=== PATIENT | male | born 1940 | race Caucasian/White ===

== ENCOUNTER 2016-10-23 20:30 | Inpatient (IN) | payer MEDICARE, BC ==
--- NOTE | 2016-10-23 20:56 | Emergency Department Record ---
History of Present Illness - General Chief complaint: Weakness Stated complaint: WEAKNESS Time Seen by Provider: 10/23/16 20:50 Source: Patient Mode of Arrival: EMS Limitations: No limitations - History of Present Illness Initial comments: 76 yo male presents to ED with a CC of "I don't know". Patient exhibits rambling conversational on examination about his dog and prescription medications, but cannot tell me when he is here in the ED. Location: Generalized Improves with: None Worsens with: None Associated Symptoms: Denies other symptoms - [place] Coma Scale Eye Response: (4) Open spontaneously Motor Response: (6) Obeys commands Verbal Response: (5) Oriented Alyx Total: 15 - Related Data Home Medications Medication Instructions Recorded Confirmed Last Taken Thiamine HCl [Vitamin B-1] 100 mg PO DAILY 12/17/14 10/23/16 09/14/15 Ciprofloxacin HCl [Cipro] 500 mg PO BID 10/23/16 10/23/16 Unknown Gabapentin [Gabapentin] 300 mg PO TID 10/23/16 10/23/16 Unknown Omeprazole [Prilosec] 20 mg PO DAILY 10/23/16 10/23/16 Unknown Sotalol HCl [Betapace] 80 mg PO BID 10/23/16 10/23/16 Unknown Previous Rx's Medication Instructions Recorded Cyanocobalamin (Vitamin B-12) 1,000 mcg SC DAILY vial 10/22/15 [Vitamin B-12] Folic Acid 1 mg PO DAILY tablet 10/22/15 Calcium Carbonate [Tums] 500 mg PO Q4H PRN #120 tab.chew 03/13/16 Loperamide HCl [Immodium] 2 mg PO Q4H PRN #120 capsule 03/13/16 Allergies Allergy/AdvReac Type Severity Reaction Status Date / Time No Known Drug Allergies Allergy Verified 03/10/16 13:08 Travel Screening - Travel/Exposure Within Last 30 Days Have you traveled within the last 30 days?: No - Travel/Exposure Within Last Year Have you traveled outside the [place] in the last year?: No - Additonal Travel Details Have you been exposed to anyone with a communicable illness?: No Review of Systems ROS unobtainable: Due to mental status Past Medical History - SOCIAL HISTORY Smoking Status: Former smoker Alcohol Use Comment: Pt states sober 200 days Drug Use: None - RESPIRATORY Hx Respiratory Disorders: Yes Hx Pneumonia: Yes - CARDIOVASCULAR Hx Cardio Disorders: Yes Hx CHF: Yes Hx Hypertension: Yes - NEURO Hx Neuro Disorders: No - GI Hx GI Disorders: No Hx Liver Disease: Yes ("I think so") Comment:: "I don't know" - Hx Genitourinary Disorders: No Hx UTI: Yes Comment:: Curiel catheter since previous admission - ENDOCRINE Hx Endocrine Disorders: No Hx Diabetes: No Hx Thyroid Disease: No - MUSCULOSKELETAL Hx Musculoskeletal Disorders: Yes Hx Arthritis: Yes - PSYCH Hx Psych Problems: No - HEMATOLOGY/ONCOLOGY Hx Hematology/Oncology Disorders: No Family Medical History Any Significant Family History?: No Hx Alcohol Use: Father Hx Cancer: Mother *Cancer Comment: pancreatic cancer- Hx Dementia: Mother Hx Stroke: Father Physical Exam - General General Appearance: Alert, Cooperative, Other (patient appears disheveled on examination, soiling himself, and clincially appears intoxicated on examination. ) Limitations: Altered mental status - Head Head exam: Atraumatic, Normocephalic, Normal inspection Head exam detail: negative: Abrasion, Contusion, Oliveira's sign, General tenderness, Hematoma, Laceration - Eye Eye exam: Normal appearance. negative: Conjunctival injection, Periorbital swelling, Periorbital tenderness, Scleral icterus - ENT Ear exam: negative: Auricular hematoma, Auricular trauma Nasal Exam: negative: Active bleeding, Discharge, Dried blood, Foreign body Mouth exam: negative: Drooling, Laceration, Muffled voice, Tongue elevation - Neck Neck exam: Normal inspection. negative: Meningismus, Tenderness - Respiratory Respiratory exam: Wheezes. negative: Respiratory distress, Rhonchi, Stridor - Cardiovascular Cardiovascular Exam: Regular rate, Normal rhythm, Normal heart sounds - GI/Abdominal GI/Abdominal exam: Soft. negative: Rebound, Rigid, Tenderness - Rectal Rectal exam: Deferred - exam: Deferred - Extremities Extremities exam: Normal inspection. negative: Calf tenderness, Pedal edema, Tenderness - Back Back exam: Reports: Normal inspection. Denies: CVA tenderness (R), CVA tenderness (L) - Neurological Neurological exam: Alert - Psychiatric Psychiatric exam: Normal affect, Normal mood - Skin Skin exam: Normal color. negative: Abrasion Type of lesion: negative: abrasion Course Vital Signs 10/23/16 20:33 Temperature 99.3 F Pulse Rate 82 Respiratory 16 Rate Blood Pressure 110/56 Pulse Ox 93 L - Reevaluation(s) Reevaluation #1: 10/23/16 21:57 Labs reviewed, BUN 25, Creatinine 1.8 (baseline 0.7). Platelets 105, c/w chronic alcohol abuse. IVFs ordered to infuse. CXR reviewed: No acute process, COPD. Reevaluation #2: 10/24/16 06:47 Case was discussed with Nova Tam, will accept admission for ARF and generalized weakness. Medical Decision Making - Lab Data Result diagrams: 10/23/16 21:09 10/23/16 21:09 Disposition Disposition: Admit Clinical Impression: Acute renal insufficiency, Generalized muscle weakness Disposition: Still a Patient at [facility] Decision to Admit: Admit from ER Decision to Admit Date: 10/23/16 Decision to Admit Time: 21:59 Condition: (1) Good Time of Disposition: 21:59
[2016-10-23 21:18] LABS: HEMATOCRIT 39.6 % (42.0-52.0); HEMOGLOBIN 12.9 gm/dl (14.0-18.0); MEAN CORPUSCULAR HGB CONC 32.6 g/dl (32-36); MEAN PLATELET VOLUME 8.8 fl (7.4-10.4); PLATELET COUNT 105 K/uL (130-400); RED BLOOD COUNT 4.35 M/uL (4.40-5.70); WHITE BLOOD COUNT W/O DIFF 3.9 K/uL (4.2-12.2)
[2016-10-23 21:22] LABS: MEAN CORPUSCULAR HEMOGLOBIN 29.6 pg (27-33)
[2016-10-23 21:37] LABS: LACTIC ACID 1.4 mmol/L (0.7-2.1)
[2016-10-23 21:52] LABS: BLOOD UREA NITROGEN 25 mg/dL (9-20); CREATININE 1.8 mg/dL (0.66-1.25); EST GLOMERULAR FILTRATION RATE 39 ml/min; GLUCOSE,RANDOM 183 mg/dL (70-110)
[2016-10-23 21:53] LABS: ALB/GLOB RATIO 1.2 (1.1-1.8); ALBUMIN 3.9 gm/dL (3.5-5.0); ALKALINE PHOSPHATASE 86 U/L (38-126); ALT/SGPT 19 U/L (21-72); AST/SGOT 16 U/L (17-59); TOTAL PROTEIN 7.1 gm/dL (6.3-8.2)
[2016-10-23 21:54] LABS: CKMB 0.6 ug/L (0-6); CREATINE PHOSPHOKINASE 80 U/L (55-170); TROPONIN I < 0.012 ng/mL (0.00-0.034)
[2016-10-23] MEDS ORDERED: 0.9 % SODIUM CHLORIDE 1000ML 1,000 ML IV SCH (22:00)
[2016-10-23 22:10] LABS: AMMONIA < 8.7 umol/L (9-30)
[2016-10-23] MEDS: 0.9 % SODIUM CHLORIDE 1000ML 1,000 ML IV PRN (22:48)
[2016-10-24 06:38] LABS: INR 1.09; PROTHROMBIN TIME (PATIENT) 12.3 SECONDS (9.5-12.1)
--- NOTE | 2016-10-24 07:19 | RADIOLOGY REPORT ---
EXAM: CHEST, TWO VIEWS HISTORY: WEAKNESS. COUGH. TECHNIQUE: Upright PA and lateral views of the chest were obtained. Comparison: Two view chest radiographic examination dated 10/18/15. FINDINGS: The heart is not enlarged and the pulmonary vasculature is nondilated. The thoracic aorta remains mildly tortuous. Calcified lymph nodes are noted in the right paratracheal and subcarinal regions of the mediastinum consistent with healed granulomatous disease. The lungs remain hyperinflated consistent with COPD. No new confluent air space opacity is seen nor is there costophrenic angle blunting or pneumothorax. Degenerative changes are again noted scattered within the visualized spine with associated accentuation of the normal thoracic kyphosis. IMPRESSION: 1. NO RADIOGRAPHIC EVIDENCE OF ACUTE CARDIOPULMONARY DISEASE WITHOUT SIGNIFICANT CHANGE SINCE 10/18/15. 2. HYPERINFLATION OF THE LUNGS REDEMONSTRATED CONSISTENT WITH COPD. 3. HEALED GRANULOMATOUS DISEASE. JOB NUMBER: [id number] MTDD
[2016-10-24 07:37] LABS: AMPHETAMINE SCREEN URINE NOT DETECTED; BARBITURATE SCREEN URINE NOT DETECTED; BENZODIAZEPINE SCREEN URINE NOT DETECTED; COCAINE SCREEN URINE NOT DETECTED; METHADONE SCREEN URINE NOT DETECTED; METHAMPHETAMINE SCREEN NOT DETECTED; OPIATE SCREEN URINE NOT DETECTED; OXYCODONE SCREEN URINE NOT DETECTED; PHENCYCLIDINE SCREEN URINE NOT DETECTED; PROPOXYPHENE SCREEN URINE NOT DETECTED; THC SCREEN URINE NOT DETECTED; TRICYCLIC ANTIDEPRESSANT SCRN NOT DETECTED
[2016-10-24] MEDS: CIPROFLOXACIN HCL 500 MG TABLET PO SCH ×2 (09:21→21:42)
[2016-10-24] MEDS: IPRATROPIUM/ALBUTEROL (0.5MG/3MG) NEB INH PRN ×3 (09:38→20:41)
[2016-10-24] MEDS: PANTOPRAZOLE SODIUM 40 MG TABLET PO SCH (09:59)
[2016-10-24] MEDS: GABAPENTIN 300 MG CAPSULE PO SCH ×3 (09:59→21:43)
[2016-10-24] MEDS: CYANOCOBALAMIN (VITAMIN B-12) 100 MCG TABLET PO SCH (09:59)
[2016-10-24] MEDS: FOLIC ACID 1 MG TABLET PO SCH (09:59)
[2016-10-24] MEDS: GUAIFENESIN 1,200 MG TABLET PO SCH ×2 (09:59→21:42)
[2016-10-24] MEDS: THIAMINE MONONITRATE 100 MG TABLET PO SCH (09:59)
[2016-10-24] MEDS: SOTALOL HCL 80 MG TABLET PO SCH ×2 (09:59→21:42)
[2016-10-24] MEDS ORDERED: ALBUTEROL HFA 8 GM INHALER INH SCH (10:00)
[2016-10-24] MEDS ORDERED: POTASSIUM CHLORIDE 20 MEQ TABLET PO SCH (10:00)
[2016-10-24] MEDS ORDERED: METOPROLOL TART 50 MG TABLET PO SCH (10:00)
--- NOTE | 2016-10-24 10:19 | History & Physical ---
History of Present Illness - Date of Service Date of Service for History & Physical: 10/24/16 - History of Present Illness Admitting Diagnosis: ARF. Dehydration. Generalized weakness History of Present Illness: 76 yo male admitted for acute kidney injury, dehydration and weakness. PMHx consists of etoh abuse, CHF, HTN, arthritis, liver disease, and COPD. Patient reports worsening cough, wheezing and weakness over the past week. Aggravated by lying down. Alleviated by breathing treatment here on the floor. Associated symptoms include change in urination frequency, cloudy urine. Patient's roommate was concerned about him and contacted EMS. Upon presentation to the ED, temp 99.3, HR 82, RR 16, BP 110/56, pulse ox 93 on RA. wbc 3.9, plt 105, sodium 132, potassium 4.3, BUN 25, Cr. 1.8, glucose 183, etoh level normal, UDS unremarkable. PT 12.3, ammounia 8.1, troponin negative. Patient started on IVFs and admitted for further medical management. This morning, patient is sitting up in bed comfortably. Nursing noted patient having a more difficult time breathing on RA. Pulse ox revealed patient sating at < 89% on RA. Saturation improved to 96% w/ 2L's NC. Respiratory therapy performed duo neb treatment which helped improve patients symptoms. Patient states that he's been taking mucinex at home for chest congestion. He reports a clear, mucousy sputum. Denies hemoptysis, hematemesis, CP, fever, chills, N/V , dysuria, hematuria, unintentional weight loss, lightheadedness, change in vision, headache or diaphoresis. States he saw his home physician a few days ago and was started on Cipro for suspect urinary tract infection. Aside from Cipro, no other changes to his medications. He's obstained from alcohol use for the past 200 days. He's been performing his own ADL's until this past week. no recent travel or sick contacts. Long history of smoking (quit in 1991 ). no h/o ME, DVT/PE or CVA. PCP: [facility] Travel Screening - Travel/Exposure Within Last 30 Days Have you traveled within the last 30 days?: No - Travel/Exposure Within Last Year Have you traveled outside the [place] in the last year?: No - Additonal Travel Details Have you been exposed to anyone with a communicable illness?: No - Travel Symptoms Symptom Screening: Weakness, Fatigue, Lack of Appetite Review of Systems Reviewed: No additional complaints except as noted below Constitutional: Reports: As per HPI. Denies: Chills, Fever, Malaise, Night sweats, Weakness, Weight change Eyes: Reports: As per HPI. Denies: Eye discharge, Eye pain, Photophobia, Vision change ENT: Reports: As per HPI. Denies: Congestion, Dental pain, Ear pain, Epistaxis , Hearing loss, Throat pain Respiratory: Reports: As per HPI. Denies: Cough, Dyspnea, Hemoptysis, Stridor, Wheezes Cardiovascular: Reports: As per HPI. Denies: Arrhythmia, Chest pain, Dyspnea on exertion, Edema, Murmurs, Orthopnea, Palpitations, Paroxysmal nocturnal dyspnea, Rheumatic Fever, Syncope Endocrine: Reports: As per HPI. Denies: Fatigue, Heat or cold intolerance, Polydipsia, Polyuria Gastrointestinal: Reports: As per HPI. Denies: Abdominal pain, Constipation, Diarrhea, Hematemesis, Hematochezia, Melena, Nausea, Vomiting Genitourinary: Reports: As per HPI. Denies: Dysuria, Frequency, Hematuria, Incontinence, Retention, Testicular pain, Testicular mass, Urgency Musculoskeletal: Reports: As per HPI. Denies: Arthralgia, Back pain, Gout, Joint swelling, Myalgia, Neck pain Skin: Reports: As per HPI. Denies: Bruising, Change in color, Change in hair/ nails, Lesions, Pruritus, Rash Neurological: Reports: As per HPI. Denies: Abnormal gait, Confusion, Headache, Numbness, Paresthesias, Seizure, Tingling, Tremors, Vertigo, Weakness Psychiatric: Reports: As per HPI. Denies: Anxiety, Auditory hallucinations, Depression, Homicidal thoughts, Suicidal thoughts, Visual hallucinations Hematological/Lymphatic: Reports: As per HPI. Denies: Anemia, Blood Clots, Easy bleeding, Easy bruising, Swollen glands Past Medical History - SOCIAL HISTORY Smoking Status: Former smoker Alcohol Use Comment: Pt states sober 200 days Drug Use: None - RESPIRATORY Hx Respiratory Disorders: Yes Hx Pneumonia: Yes - CARDIOVASCULAR Hx Cardio Disorders: Yes Hx CHF: Yes Hx Hypertension: Yes - NEURO Hx Neuro Disorders: No - GI Hx GI Disorders: No Hx Liver Disease: Yes ("I think so") Comment:: "I don't know" - Hx Genitourinary Disorders: No Hx UTI: Yes Comment:: Curiel catheter since previous admission - ENDOCRINE Hx Endocrine Disorders: No Hx Diabetes: No Hx Thyroid Disease: No - MUSCULOSKELETAL Hx Musculoskeletal Disorders: Yes Hx Arthritis: Yes - PSYCH Hx Psych Problems: No - HEMATOLOGY/ONCOLOGY Hx Hematology/Oncology Disorders: No Family Medical History Any Significant Family History?: No Hx Alcohol Use: Father Hx Cancer: Mother *Cancer Comment: pancreatic cancer- Hx Dementia: Mother Hx Stroke: Father H&P Meds/Allergies - Allergies Allergies: Allergies Allergy/AdvReac Type Severity Reaction Status Date / Time No Known Drug Allergies Allergy Verified 03/10/16 13:08 - Home Medications Home Medications Medication Instructions Recorded Confirmed Last Taken Thiamine HCl [Vitamin B-1] 100 mg PO DAILY 12/17/14 10/23/16 09/14/15 Ciprofloxacin HCl [Cipro] 500 mg PO BID 10/23/16 10/23/16 Unknown Gabapentin [Gabapentin] 300 mg PO TID 10/23/16 10/23/16 Unknown Omeprazole [Prilosec] 20 mg PO DAILY 10/23/16 10/23/16 Unknown Sotalol HCl [Betapace] 80 mg PO BID 10/23/16 10/23/16 Unknown Previous Rx's Medication Instructions Recorded Cyanocobalamin (Vitamin B-12) 1,000 mcg SC DAILY vial 10/22/15 [Vitamin B-12] Folic Acid 1 mg PO DAILY tablet 10/22/15 Calcium Carbonate [Tums] 500 mg PO Q4H PRN #120 tab.chew 03/13/16 Loperamide HCl [Immodium] 2 mg PO Q4H PRN #120 capsule 03/13/16 - Active Medications Active Medications: Current Medications Albuterol Sulfate (Ventolin Hfa) 1 puff INH RESP.Q4H.[facility] Albuterol/Ipratropium (Duoneb) 3 ml INH RESP.Q4H PRN PRN Reason: Wheezing Last Admin: 10/24/16 09:38 Dose: 3 ml Ciprofloxacin (Cipro) 500 mg PO BID COUNT INCLUDES THE [facility] Last Admin: 10/24/16 09:21 Dose: 500 mg Cyanocobalamin (Vitamin B-12) 100 mcg PO DAILY COUNT INCLUDES THE [facility] Last Admin: 10/24/16 09:59 Dose: 100 mcg Folic Acid () 1 mg PO DAILY COUNT INCLUDES THE [facility] Last Admin: 10/24/16 09:59 Dose: 1 mg Gabapentin (Neurontin) 300 mg PO TID COUNT INCLUDES THE [facility] Last Admin: 10/24/16 09:59 Dose: 300 mg Guaifenesin (Mucinex) 1,200 mg PO BID COUNT INCLUDES THE [facility] Last Admin: 10/24/16 09:59 Dose: 1,200 mg Sodium Chloride () 1,000 mls @ 100 mls/hr IV .Q10H PRN PRN Reason: LARGE VOLUME IV Last Admin: 10/23/16 22:48 Dose: 100 mls/hr Pantoprazole Sodium (Protonix) 40 mg PO DAILYAC COUNT INCLUDES THE [facility] Last Admin: 10/24/16 09:59 Dose: 40 mg Sotalol HCl (Betapace) 80 mg PO BID COUNT INCLUDES THE [facility] Last Admin: 10/24/16 09:59 Dose: 80 mg Physical Exam - Vital Signs Vital Signs: Vital Signs - Last 24 Hrs Temp Pulse Pulse Pulse Resp BP Pulse Ox 10/24/16 09:29 106 H 26 H 96 10/24/16 09:28 104 H 24 96 10/24/16 08:43 74 18 94 L 10/24/16 08:30 76 20 85 L 10/24/16 07:50 72 20 10/24/16 06:46 99.3 F 92 H 18 123/73 86 L 10/23/16 22:46 98.3 F 82 18 132/64 94 L - General General Appearance: Alert, Oriented x3, Cooperative, Other (cachectic, less than previously) Limitations: Altered mental status - Head Head exam: Atraumatic, Normocephalic, Normal inspection Head exam detail: negative: Abrasion, Contusion, Oliveira's sign, General tenderness, Hematoma, Laceration - Eye Eye exam: Normal appearance. negative: Conjunctival injection, Periorbital swelling, Periorbital tenderness, Scleral icterus - ENT Ear exam: negative: Auricular hematoma, Auricular trauma Nasal Exam: negative: Active bleeding, Discharge, Dried blood, Foreign body Mouth exam: negative: Drooling, Laceration, Muffled voice, Tongue elevation - Neck Neck exam: Normal inspection. negative: Meningismus, Tenderness - Respiratory Respiratory exam: Prolonged expiratory, Wheezes. negative: Respiratory distress , Rhonchi, Stridor - Cardiovascular Cardiovascular Exam: Regular rate, Normal rhythm, Normal heart sounds - GI/Abdominal GI/Abdominal exam: Soft. negative: Rebound, Rigid, Tenderness - Rectal Rectal exam: Deferred - exam: Deferred - Extremities Extremities exam: Normal inspection. negative: Calf tenderness, Pedal edema, Tenderness - Back Back exam: Reports: Normal inspection. Denies: CVA tenderness (R), CVA tenderness (L) - Neurological Neurological exam: Alert - Psychiatric Psychiatric exam: Normal affect, Normal mood - Skin Skin exam: Normal color. negative: Abrasion Type of lesion: negative: abrasion Results - Labs Result Diagrams: 10/23/16 21:09 10/23/16 21:09 Labs Last 24 Hours: Laboratory Results - last 24 hr 10/24/16 10/24/16 10/24/16 06:20 06:20 07:25 PT 12.3 H INR 1.09 Ammonia < 8.7 L Urine Opiates Screen Not detected Ur Oxycodone Screen Not detected Urine Methadone Screen Not detected Ur Propoxyphene Screen Not detected Ur Barbituates Screen Not detected Ur Tricyclics Screen Not detected Ur Phencyclidine Scrn Not detected Ur Amphetamine Screen Not detected U Methamphetamines Scrn Not detected U Benzodiazepines Scrn Not detected Urine Cocaine Screen Not detected Urine Cannabis Screen Not detected VTE H&P Assessment - Risk for VTE Risk for VTE: Yes Risk Level: Moderate Risk Assessment Date: 10/24/16 Risk Assessment Time: 10:00 VTE Orders Placed or Will Be Placed: Yes Plan - Inpatient Certification Inpatient Certification: Admit to inpatient care: Based on my medical assessment, after consideration of patient's risk factors (age, co-morbidities and patient presenting symptoms and acuity), I expect that this patient will remain in the hospital greater than or equal to two midnights and that the services needed warrant inpatient care because: Patient Risk Factors: [weakness, dehydration, kidney injury, electrolyte abnormality] Estimated length of stay: [48-72 hours] The patient may reasonably be expected to be discharged or transferred to a hospital within 96 hours after admission to [facility]. Services needed: [IVF's, PT/OT, antibiotics, breathing treatments, supplemental oxygen] Post hospital care (if known): [subacute rehab facility] I certify that my determination is in accordance with my understanding of Medicare requirements for reasonable and necessary inpatient services. 10/24/16 10:48 - Detailed Diagnosis and Plan (1) Acute renal insufficiency Current Visit: Yes Status: Acute Base Code: N28.9 - DISORDER OF KIDNEY AND URETER, UNSPECIFIED Comment: 10/24/16: I suspect related to dehydration. Continue gentle IV hydration. UA to evaluate for urinary tract infection. Continue Cipro. (2) Generalized muscle weakness Current Visit: Yes Status: Acute Base Code: M62.81 - MUSCLE WEAKNESS ( GENERALIZED) Comment: 10/24/16: -Suspect secondary to malnutrition, recent illness, dehydration. -IVF's, correct electrolytes, regular diet. -Will have PT/OT evaluate but at this time. (3) Electrolyte abnormality Current Visit: No Status: Acute Base Code: E87.8 - [facility] DISORDERS OF ELECTROLYTE AND FLUID BALANCE, NEC Comment: 10/24/16: sodium 132 on admission. Continue gentle IV hydration. Will monitor closely. (4) Urinary tract infection Current Visit: No Status: Acute Base Code: N39.0 - URINARY TRACT INFECTION, SITE NOT SPECIFIED Comment: 10/24/16: patient diagnosed with UTI by traveling physician. WBC normal. Urinary incontinence. Obtain UA. Will continue Cipro during admission. (5) COPD with acute exacerbation Current Visit: Yes Status: Acute Base Code: J44.1 - CHRONIC OBSTRUCTIVE PULMONARY DISEASE W (ACUTE) EXACERBATION Comment: 10/24/16: -CXR: consistent with copd. -afebrile, normal WBC -duo neb treatments q 4 hours prn -mucinex 1200 mg BID -2 L's of supplemental oxygen -consider IV solu medrol if respiratory status barbosa not improve w/ breathing treatments (6) Full code status Current Visit: No Status: Acute Base Code: Z78.9 - OTHER SPECIFIED HEALTH STATUS Comment: 10/24/16: patient is full code (7) DVT prophylaxis Current Visit: No Status: Acute Base Code: [id number] - Comment: 10/24/16: moderate risk: age, decreased mobility. lovenox 40 mg sq daily.
[2016-10-24] MEDS ORDERED: ALBUTEROL SULFATE (0.083%) 2.5 MG/3 ML NEB INH PRN (10:48)
--- NOTE | 2016-10-24 12:39 | Rehab Evaluation ---
Patient Information - Patient Information Diagnosis: ARF, dehydration, generalized weakness Ordered Treatment: OT Evaluate and Treat Status: Initial Evaluation Surgery: No Past Medical/Surgical Hx: PAST MEDICAL/SURGICAL HISTORY Past Surgical History hernia repair AGE 8 carbuncle removed from groin PMH - Respiratory Hx Respiratory Disorders Yes Hx Pneumonia Yes PMH - Cardiovascular Hx Cardiovascular Disorders Yes Hx Congestive Heart Failure Yes Hx Hypertension Yes PMH - Neuro Hx Neurological Disorders No PMH - GI Hx Gastrointestinal Disorders No Hx Liver Disease Yes: "I think so" Comment: "I don't know" PMH - Hx Genitourinary Disorders No Hx Urinary Tract Infection Yes Comment: Curiel catheter since previous admission PMH - Endocrine Hx Endocrine Disorders No Hx Diabetes No Hx Thyroid Disease No PMH - Musculoskeletal Hx Musculoskeletal Disorders Yes Hx Arthritis Yes PMH - Psych Hx Psychiatric Problems No PMH - Hematology/Oncology Hx Hematology/Oncology No Disorders Premorbid Status: Detail (Pt lives with roommate in a 2 story house, pt stays on first floor. Ramp at entrance. Pt has a walk in shower with seat, raised toilet with grab bars and uses a 4 wheeled walker for ambulation. He also has a standard walker. His roommate completes all home mgmt, meal prep and laundry tasks. He is Ind with showering and dressing.) Precautions: [place], Fall - Time With Patient Total Time Spent With Patient (Min): 40 Treatment Procedures: Detail (OT eval low complexity) Subjective Information - Subjective Information Per Patient Objective Data - Pain Pain Present: No - Mental Status Patient Orientation: Oriented x3 - Visual Perception Appears within normal limits for therapeutic activities (Pt reports he has glasses but doesn't wear them.) - ROM Within normal limits (Johnnie UE AROM WNL) - Strength/Tone Within normal limits (Johnnie UE MMT 4+/5) - Coordination Appears within normal limits for therapeutic activities - Bed Mobility Independent (Ind with supine to sit) - Transfers Needs Assist (CG with sit to stand from EOB to walker) - Balance Balance Sitting: Good Balance Standing: Fair - Sensation Intact - Gait Detail (Pt able to ambulate several steps to chair with 2 wheeled walker and CG assist, on 2 liters of oxygen) - ADL's/IADL's Detail (Pt Ind with eating, toileting with urinal and assist from nursing, able to don slipper socks Indly. Other ADLs not formally assessed at this time.) Therapy Assessment - Therapy Assessment Detail (Pt presents with decreased endurance and functional mobility needed for safe and Ind ADLs.) Problem List - Problem List Occupational Therapy Problem List: Detail (1. Decreased Ind with dressing 2. Decreased Ind with showering 3. Decreased mobility and endurance needed for safe ADLs) Goals - Goals Occupational Therapy Goals: 1. Pt will be safe and Ind with dressing 2. Pt will be safe and Ind with showering 3. Pt will demonstrate Ind with mobility needed for ADLs Prognosis - Prognosis Good Plan - Plan Occupational Therapy Plan: OT 2-4 days per week to address self cares, functional mobility, endurance and safety to allow return home. He would benefit from short term rehab to address goals and problem list.
[2016-10-24 12:42] LABS: URINE BILIRUBIN NEGATIVE (NEGATIVE); URINE BLOOD SMALL (NEGATIVE); URINE COLOR YELLOW; URINE GLUCOSE (UA) NEGATIVE (NEGATIVE); URINE KETONE NEGATIVE (NEGATIVE); URINE LEUKOCYTE ESTERASE MODERATE (NEGATIVE); URINE NITRITE NEGATIVE (NEGATIVE); URINE PROTEIN NEGATIVE (NEGATIVE); URINE UROBILINOGEN 0.2 E.U./dL (0.20 - 1.00)
[2016-10-24 12:59] LABS: URINE APPEARANCE SL CLOUDY
[2016-10-24 13:00] LABS: URINE RENAL EPITHELIAL CELLS 0 - 2 /hpf; URINE WBC >50 (0-2/hpf)
[2016-10-24 13:01] LABS: URINE BACTERIA FEW
--- NOTE | 2016-10-24 16:50 | Rehab Evaluation ---
Patient Information - Patient Information Diagnosis: ARF, dehydration, generalized weakness Ordered Treatment: PT Evaluate and Treat Status: Initial Evaluation Surgery: No History: Detail (Pt was admitted to Med Surg unit 10/24/16 following presentation to ED by ambulance. His housemate reported that the patient had not gotten out of bed for one week, and was weak. Patient himself did not know why he was in the ED.) Past Medical/Surgical Hx: PAST MEDICAL/SURGICAL HISTORY Past Surgical History hernia repair AGE 8 carbuncle removed from groin PMH - Respiratory Hx Respiratory Disorders Yes Hx Pneumonia Yes PMH - Cardiovascular Hx Cardiovascular Disorders Yes Hx Congestive Heart Failure Yes Hx Hypertension Yes PMH - Neuro Hx Neurological Disorders No PMH - GI Hx Gastrointestinal Disorders No Hx Liver Disease Yes: "I think so" Comment: "I don't know" PMH - Hx Genitourinary Disorders No Hx Urinary Tract Infection Yes Comment: Curiel catheter since previous admission PMH - Endocrine Hx Endocrine Disorders No Hx Diabetes No Hx Thyroid Disease No PMH - Musculoskeletal Hx Musculoskeletal Disorders Yes Hx Arthritis Yes PMH - Psych Hx Psychiatric Problems No PMH - Hematology/Oncology Hx Hematology/Oncology No Disorders Premorbid Status: Detail (Pt lives with roommate in a 2 story house, pt stays on first floor. Ramp at entrance. Pt has a walk in shower with seat, raised toilet with grab bars and uses a 4 wheeled walker for ambulation. He also has a standard walker. His roommate completes all home mgmt, meal prep and laundry tasks. He is Ind with showering and dressing.) Social History: Detail (Pt's lives in [facility], has lived there for some time. Pt has been admitted there in past, after past hospitalizations.) Precautions: [place], Fall - Time With Patient Total Time Spent With Patient (Min): 30 Treatment Procedures: Detail (PT Evaluation, low complexity.) Subjective Information - Subjective Information Per Patient ([facility] States he is fatigued, but feels better than last night.) Objective Data - Pain Pain Present: No - Mental Status Patient Orientation: Oriented x3 - Visual Perception Appears within normal limits for therapeutic activities - ROM Within normal limits (WNL in B hips, knees, ankles, and in trunk.) - Strength/Tone Not within normal limits (Grossly 4-/5 to 4/5 in B hips, 4+/5 in B knees and ankles.) - Coordination Appears within normal limits for therapeutic activities - Bed Mobility Independent - Transfers Needs Assist (Supervision required due to O2 tubing and IV.) - Balance Balance Sitting: Good Balance Standing: Good (With FWW.) - Sensation Intact - Gait Detail (Pt ambulated w/FWW w/SBA from bathroom to bedside chair, with assist for IV pole and for managing O2 tubing. VCs for approaching chair, hand placement.) Therapy Assessment - Therapy Assessment Detail (Pt exhibits proximal LE weakness associated with acute exacerbation of chronic illness. He is a good candidate for short-term rehab to regain safe and independent mobility for ADLs.) Patient Education - Patient Education Teaching Topic: Equipment Use, Exercise/Activity, Precautions Response: Return Demonstration, Verbalize Understanding Teaching Method: Discussion Teaching Recipient: Patient Barriers To Learning: None Problem List - Problem List Physical Therapy Problem List: Detail (1. B proximal LE weakness 2. Supervision required for transfers and gait w/FWW 3. Decreased activity tolerance.) Occupational Therapy Problem List: Detail (1. Decreased Ind with dressing 2. Decreased Ind with showering 3. Decreased mobility and endurance needed for safe ADLs) Goals - Goals Occupational Therapy Goals: 1. Pt will be safe and Ind with dressing 2. Pt will be safe and Ind with showering 3. Pt will demonstrate Ind with mobility needed for ADLs Prognosis - Prognosis Good Plan - Plan Physical Therapy Plan: PT daily M-F to address LE strengthening, endurance training, gait/balance training, transfer training, to facilitate safe return to home environment. Occupational Therapy Plan: OT 2-4 days per week to address self cares, functional mobility, endurance and safety to allow return home. He would benefit from short term rehab to address goals and problem list.
[2016-10-24] MEDS: 0.9 % SODIUM CHLORIDE 1000ML 1,000 ML IV PRN (21:43)
[2016-10-25] MEDS: PANTOPRAZOLE SODIUM 40 MG TABLET PO SCH ×2 (05:19→06:40)
[2016-10-25] MEDS: 0.9 % SODIUM CHLORIDE 1000ML 1,000 ML IV PRN ×2 (05:23→17:31)
[2016-10-25] MEDS: IPRATROPIUM/ALBUTEROL (0.5MG/3MG) NEB INH PRN ×3 (05:42→15:29)
[2016-10-25 06:26] LABS: BASO % 0.3 % (0-6); EOS % 3.8 % (0-6); GRAN % 55.1 % (47-80); HEMATOCRIT 34.7 % (42.0-52.0); HEMOGLOBIN 10.9 gm/dl (14.0-18.0); LYMPH % 28.1 % (16-45); MEAN CELL VOLUME 93.5 fl (81-97); MEAN CORPUSCULAR HGB CONC 31.4 g/dl (32-36); MEAN PLATELET VOLUME 9.5 fl (7.4-10.4); MONO % 12.7 % (0-9); PLATELET COUNT 84 K/uL (130-400); RED BLOOD COUNT 3.71 M/uL (4.40-5.70); RED CELL DISTRIBUTION WIDTH 14.2 % (11.5-14.5); WHITE BLOOD COUNT W/O DIFF 2.9 K/uL (4.2-12.2)
[2016-10-25 06:27] LABS: ANION GAP 11.6 (7-16); CARBON DIOXIDE 21.4 mmol/L (22-30); CREATININE 1.4 mg/dL (0.66-1.25)
[2016-10-25 06:57] LABS: MEAN CORPUSCULAR HEMOGLOBIN 29.3 pg (27-33)
[2016-10-25] MEDS: SOTALOL HCL 80 MG TABLET PO SCH ×2 (09:41→21:08)
[2016-10-25] MEDS: GUAIFENESIN 1,200 MG TABLET PO SCH ×2 (09:42→21:07)
[2016-10-25] MEDS: FOLIC ACID 1 MG TABLET PO SCH (09:42)
[2016-10-25] MEDS: ENOXAPARIN 40 MG/0.4 ML SYR SQ SCH (09:42)
[2016-10-25] MEDS: CIPROFLOXACIN HCL 500 MG TABLET PO SCH ×2 (09:42→21:08)
[2016-10-25] MEDS: THIAMINE MONONITRATE 100 MG TABLET PO SCH (09:43)
[2016-10-25] MEDS: GABAPENTIN 300 MG CAPSULE PO SCH ×3 (09:43→21:07)
[2016-10-25] MEDS: CYANOCOBALAMIN (VITAMIN B-12) 100 MCG TABLET PO SCH (09:43)
--- NOTE | 2016-10-25 14:39 | Physician Progress Note ---
Subjective - Date Date of Physician Progress Note: 10/25/16 - Subjective Subjective Comment: lying in bed. states he has more energy today, though tired after sitting up all morning. tolerating meals. using urinal to void. continues to be incontinent of stool. Feels as if mucuous in his chest is breaking up. coughing up white/clear sputum. denies sob, cp, fever, chills, n/v, abd pain, or worsening weakness. Patient ambulating the room with assistance. Objective - Vital Signs Vital Signs: Vital Signs - Last 24 Hrs Temp Pulse Pulse Pulse Resp BP Pulse Ox 10/25/16 10:26 88 18 96 10/25/16 09:30 98.6 F 85 18 107/57 95 10/25/16 09:00 85 22 10/25/16 06:00 98.2 F 80 22 125/64 94 L 10/25/16 05:42 78 18 93 L 10/24/16 22:00 98.1 F 80 22 129/56 96 10/24/16 20:45 24 10/24/16 20:41 81 24 96 - General General Appearance: Alert, Oriented x3, Cooperative - Head Head exam: Atraumatic, Normocephalic, Normal inspection Head exam detail: negative: Abrasion, Contusion, Oliveira's sign, General tenderness, Hematoma, Laceration - Eye Eye exam: Normal appearance. negative: Conjunctival injection, Periorbital swelling, Periorbital tenderness, Scleral icterus - ENT Ear exam: negative: Auricular hematoma, Auricular trauma Nasal Exam: negative: Active bleeding, Discharge, Dried blood, Foreign body Mouth exam: negative: Drooling, Laceration, Muffled voice, Tongue elevation - Neck Neck exam: Normal inspection. negative: Meningismus, Tenderness - Respiratory Respiratory exam: Prolonged expiratory, Wheezes. negative: Respiratory distress , Rhonchi, Stridor - Cardiovascular Cardiovascular Exam: Regular rate, Normal rhythm, Normal heart sounds - GI/Abdominal GI/Abdominal exam: Soft. negative: Rebound, Rigid, Tenderness - Rectal Rectal exam: Deferred - exam: Deferred - Extremities Extremities exam: Normal inspection. negative: Calf tenderness, Pedal edema, Tenderness - Back Back exam: Reports: Normal inspection. Denies: CVA tenderness (R), CVA tenderness (L) - Neurological Neurological exam: Alert - Psychiatric Psychiatric exam: Normal affect, Normal mood - Skin Skin exam: Normal color. negative: Abrasion Type of lesion: negative: abrasion Assessment and Plan - Assessment and Plan (1) Acute renal insufficiency Current Visit: Yes Status: Acute Base Code: N28.9 - DISORDER OF KIDNEY AND URETER, UNSPECIFIED Comment: 10/25/16: Improving. continue gentle IV hydration. Complete Cipro course. (2) Generalized muscle weakness Current Visit: Yes Status: Acute Base Code: M62.81 - MUSCLE WEAKNESS ( GENERALIZED) Comment: 10/25/16: - much improved this morning- I suspect secondary to malnutrition, recent illness, dehydration. -Electrolytes have normalized. patient evaluated by PT/OT. [facility] has accepted patient once medically stable. -IVF's, regular diet. (3) Electrolyte abnormality Current Visit: No Status: Acute Base Code: E87.8 - OTH DISORDERS OF ELECTROLYTE AND FLUID BALANCE, NEC Comment: 10/25/16: resolved. (4) Urinary tract infection Current Visit: No Status: Acute Base Code: N39.0 - URINARY TRACT INFECTION, SITE NOT SPECIFIED Comment: 10/25/16: patient diagnosed with UTI by traveling physician. UA: moderative leuks, small blood, negative nitrites. Will have patient complete Cipro course. (5) COPD with acute exacerbation Current Visit: Yes Status: Acute Base Code: J44.1 - CHRONIC OBSTRUCTIVE PULMONARY DISEASE W (ACUTE) EXACERBATION Comment: 10/25/16: -symptoms appear to be improving today -CXR: consistent with copd. -afebrile, normal WBC -duo neb treatments q 4 hours prn -mucinex 1200 mg BID -2 L's of supplemental oxygen prn (6) Full code status Current Visit: No Status: Acute Base Code: Z78.9 - OTHER SPECIFIED HEALTH STATUS Comment: 10/25/16: patient is full code (7) DVT prophylaxis Current Visit: No Status: Acute Base Code: [id number] - Comment: 10/25/16: moderate risk: age, decreased mobility. lovenox 40 mg sq daily. Results - Labs Result Diagrams: 10/25/16 05:30 10/25/16 05:30 Labs Last 24 Hours: Laboratory Results - last 24 hr 10/25/16 10/25/16 05:30 05:30 WBC 2.9 L RBC 3.71 L Hgb 10.9 L Hct 34.7 L MCV 93.5 MCH 29.3 MCHC 31.4 L RDW 14.2 Plt Count 84 L MPV 9.5 Gran % 55.1 Lymphocytes % 28.1 Monocytes % 12.7 H Eosinophils % 3.8 Basophils % 0.3 Sodium 137 Potassium 4.5 Chloride 104 Carbon Dioxide 21.4 L Anion Gap 11.6 BUN 24 H Creatinine 1.4 H Estimated GFR 52 Random Glucose 160 H Calcium 7.7 L DVT/PE Assessment - Risk for VTE Risk for VTE: No Risk Level: Moderate Risk Assessment Date: 10/24/16 Risk Assessment Time: 10:00 VTE Orders Placed or Will Be Placed: Yes - Active Medicaitons Current Medications: Current Medications Albuterol Sulfate () 2.5 mg INH RESP.Q4H PRN PRN Reason: DIFFICULTY IN BREATHING Albuterol/Ipratropium (Duoneb) 3 ml INH RESP.Q4H PRN PRN Reason: Wheezing Last Admin: 10/25/16 10:26 Dose: 3 ml Ciprofloxacin (Cipro) 500 mg PO BID [facility] Last Admin: 10/25/16 09:42 Dose: 500 mg Cyanocobalamin (Vitamin B-12) 100 mcg PO DAILY [facility] Last Admin: 10/25/16 09:43 Dose: 100 mcg Enoxaparin Sodium (Lovenox) 40 mg SQ DAILY [facility] Last Admin: 10/25/16 09:42 Dose: 40 mg Folic Acid () 1 mg PO DAILY [facility] Last Admin: 10/25/16 09:42 Dose: 1 mg Gabapentin (Neurontin) 300 mg PO TID [facility] Last Admin: 10/25/16 09:43 Dose: 300 mg Guaifenesin (Mucinex) 1,200 mg PO BID [facility] Last Admin: 10/25/16 09:42 Dose: 1,200 mg Sodium Chloride () 1,000 mls @ 100 mls/hr IV .Q10H PRN PRN Reason: LARGE VOLUME IV Last Admin: 10/25/16 05:23 Dose: 100 mls/hr Pantoprazole Sodium (Protonix) 40 mg PO DAILYAC [facility] Last Admin: 10/25/16 06:40 Dose: Not Given Sotalol HCl (Betapace) 80 mg PO BID [facility] Last Admin: 10/25/16 09:41 Dose: 80 mg AMI Plan - Labs Result Diagrams: 10/25/16 05:30 10/25/16 05:30
[2016-10-26] MEDS: PANTOPRAZOLE SODIUM 40 MG TABLET PO SCH (06:19)
--- NOTE | 2016-10-26 06:22 | Discharge Summary ---
Providers Discharge Summary Date: 10/26/16 Date of admission: 10/23/16 22:32 Expected Date of Discharge: 10/26/16 Attending physician: NIC URIBE Consults: Consult Orders 10/24/16 09:09 Consult NOW Consulting Provider: Summer Forrest Physician Instructions: Reason For Exam: post hospital care Physical Exam - Vital Signs Vital Signs: Vital Signs - Last 24 Hrs Temp Pulse Pulse Pulse Resp BP Pulse Ox 10/25/16 20:39 97.9 F 82 20 131/58 95 10/25/16 20:03 76 26 H 97 10/25/16 17:16 98.0 F 78 18 127/72 96 10/25/16 10:26 88 18 96 10/25/16 09:30 98.6 F 85 18 107/57 95 10/25/16 09:00 85 22 - General General Appearance: Alert, Oriented x3, Cooperative Limitations: Altered mental status - Head Head exam: Atraumatic, Normocephalic, Normal inspection Head exam detail: negative: Abrasion, Contusion, Oliveira's sign, General tenderness, Hematoma, Laceration - Eye Eye exam: Normal appearance. negative: Conjunctival injection, Periorbital swelling, Periorbital tenderness, Scleral icterus - ENT Ear exam: negative: Auricular hematoma, Auricular trauma Nasal Exam: negative: Active bleeding, Discharge, Dried blood, Foreign body Mouth exam: negative: Drooling, Laceration, Muffled voice, Tongue elevation - Neck Neck exam: Normal inspection. negative: Meningismus, Tenderness - Respiratory Respiratory exam: Prolonged expiratory, Wheezes. negative: Respiratory distress , Rhonchi, Stridor - Cardiovascular Cardiovascular Exam: Regular rate, Normal rhythm, Normal heart sounds - GI/Abdominal GI/Abdominal exam: Soft. negative: Rebound, Rigid, Tenderness - Rectal Rectal exam: Deferred - exam: Deferred - Extremities Extremities exam: Normal inspection. negative: Calf tenderness, Pedal edema, Tenderness - Back Back exam: Reports: Normal inspection. Denies: CVA tenderness (R), CVA tenderness (L) - Neurological Neurological exam: Alert - Psychiatric Psychiatric exam: Normal affect, Normal mood - Skin Skin exam: Normal color. negative: Abrasion Type of lesion: negative: abrasion Hospitalization - Hospitalization Admission Diagnosis: ARF. Dehydration. Generalized weakness - Problem List/Discharge Diagnosis (1) Generalized muscle weakness Current Visit: Yes Status: Acute Base Code: M62.81 - MUSCLE WEAKNESS ( GENERALIZED) Comment: 10/26/16: -Improving- I suspect secondary to malnutrition, recent illness, dehydration. -Electrolytes have normalized. -[facility] to help build patient's physical strength and functioning. (2) Urinary tract infection Current Visit: No Status: Acute Base Code: N39.0 - URINARY TRACT INFECTION, SITE NOT SPECIFIED Comment: 10/26/16: UA: moderative leuks, small blood, negative nitrites. Complete Cipro course- sent to pharmacy. (3) COPD with acute exacerbation Current Visit: Yes Status: Acute Base Code: J44.1 - CHRONIC OBSTRUCTIVE PULMONARY DISEASE W (ACUTE) EXACERBATION Comment: 10/26/16: -symptoms have improved. -CXR: consistent with copd. -afebrile, normal WBC -mucinex 1200 mg BID -combivent respimat 1-2 puffs bid. -albuterol inh q 4 hours as needed. -follow up with PCP for PFT and further treatment management. (4) Full code status Current Visit: No Status: Acute Base Code: Z78.9 - OTHER SPECIFIED HEALTH STATUS Comment: 10/26/16: patient remained full code - Hospitalization Course Disposition: Inpatient Rehab Facility Hospital Course: 76 yo male admitted for acute kidney injury, dehydration and weakness. PMHx consists of etoh abuse, CHF, HTN, arthritis, liver disease, and COPD. Patient reports worsening cough, wheezing and weakness over the past week. Aggravated by lying down. Alleviated by breathing treatment here on the floor. Associated symptoms include change in urination frequency, cloudy urine. Patient's roommate was concerned about him and contacted EMS. Upon presentation to the ED, temp 99.3, HR 82, RR 16, BP 110/56, pulse ox 93 on RA. wbc 3.9, plt 105, sodium 132, potassium 4.3, BUN 25, Cr. 1.8, glucose 183, etoh level normal, UDS unremarkable. PT 12.3, ammounia 8.1, troponin negative. Patient started on IVFs and admitted for further medical management. This morning, patient is sitting up in bed comfortably. Nursing noted patient having a more difficult time breathing on RA. Pulse ox revealed patient sating at < 89% on RA. Saturation improved to 96% w/ 2L's NC. Respiratory therapy performed duo neb treatment which helped improve patients symptoms. Patient states that he's been taking mucinex at home for chest congestion. He reports a clear, mucousy sputum. Denies hemoptysis, hematemesis, CP, fever, chills, N/V , dysuria, hematuria, unintentional weight loss, lightheadedness, change in vision, headache or diaphoresis. States he saw his home physician a few days ago and was started on Cipro for suspect urinary tract infection. Aside from Cipro, no other changes to his medications. He's obstained from alcohol use for the past 200 days. He's been performing his own ADL's until this past week. no recent travel or sick contacts. Long history of smoking (quit in 1991 ). no h/o RI, DVT/PE or CVA. PCP: [facility] 10/26/16: patient sitting up at the side of the bed. no complaints this morning. albuterol, nebulizing treatments have improved cough. clear sputum production. no urinary output. denies dysuria, hematuria, abd pain, change in bowel or bladder, fever, chills, n/v, sob, nilam, headache or confusion. tolerating meals. Ambulating his room. Abnormal Labs: Abnormal Lab Results 10/24/16 10/24/16 10/24/16 Range/Units 06:20 06:20 07:25 WBC (4.2-12.2) K/uL RBC (4.40-5.70) M/uL Hgb (14.0-18.0) gm/dl Hct (42.0-52.0) % MCHC (32-36) g/dl Plt Count (130-400) K/uL Monocytes % (0-9) % PT 12.3 H (9.5-12.1) SECONDS Carbon Dioxide (22-30) mmol/L BUN (9-20) mg/dL Creatinine (0.66-1.25) mg/dL Random Glucose (70-110) mg/dL Calcium (8.5-10.1) mg/dL Ammonia < 8.7 L (9-30) umol/L Urine Blood Small H (NEGATIVE) Ur Leukocyte Esterase Moderate H (NEGATIVE) 10/25/16 10/25/16 Range/Units 05:30 05:30 WBC 2.9 L (4.2-12.2) K/uL RBC 3.71 L (4.40-5.70) M/uL Hgb 10.9 L (14.0-18.0) gm/dl Hct 34.7 L (42.0-52.0) % MCHC 31.4 L (32-36) g/dl Plt Count 84 L (130-400) K/uL Monocytes % 12.7 H (0-9) % PT (9.5-12.1) SECONDS Carbon Dioxide 21.4 L (22-30) mmol/L BUN 24 H (9-20) mg/dL Creatinine 1.4 H (0.66-1.25) mg/dL Random Glucose 160 H (70-110) mg/dL Calcium 7.7 L (8.5-10.1) mg/dL Ammonia (9-30) umol/L Urine Blood (NEGATIVE) Ur Leukocyte Esterase (NEGATIVE) Condition at Discharge: (1) Good Discharge Medications - Discharge Medications Prescriptions: Ciprofloxacin HCl [Cipro] 500 mg PO BID #15 tablet Ipratropium/Albuterol Sulfate [Combivent] 1 - 2 puff IH BID #1 inh Albuterol Sulfate [Ventolin Hfa] 1 - 2 puff IH .EVERY 4-6 HOURS PRN #1 inhaler PRN Reason: Difficulty In Breathing Home Medications: Ambulatory Orders Thiamine HCl [Vitamin B-1] 100 mg PO DAILY 12/17/14 [Last Taken 09/14/15] Cyanocobalamin (Vitamin B-12) [Vitamin B-12] 1,000 mcg SC DAILY vial 10/22/15 [ Last Taken Unknown] Folic Acid 1 mg PO DAILY tablet 10/22/15 [Last Taken Unknown] Calcium Carbonate [Tums] 500 mg PO Q4H PRN #120 tab.chew 03/13/16 [Last Taken Unknown] Loperamide HCl [Immodium] 2 mg PO Q4H PRN #120 capsule 03/13/16 [Last Taken Unknown] Gabapentin 300 mg PO TID 10/23/16 [Last Taken Unknown] Omeprazole [Prilosec] 20 mg PO DAILY 10/23/16 [Last Taken Unknown] Sotalol HCl [Betapace] 80 mg PO BID 10/23/16 [Last Taken Unknown] Albuterol Sulfate [Ventolin Hfa] 1 - 2 puff IH .EVERY 4-6 HOURS PRN #1 inhaler 10/26/16 [Last Taken Unknown] Ciprofloxacin HCl [Cipro] 500 mg PO BID #15 tablet 10/26/16 [Last Taken Unknown] Ipratropium/Albuterol Sulfate [Combivent] 1 - 2 puff IH BID #1 inh 10/26/16 [ Last Taken Unknown] Discharge Plan - Discharge Instructions Activity at Discharge: As Per Physical Therapy Diet at Discharge: Regular Diet Instructions: Dehydration (DC), Acute Kidney Injury (DC), Chronic Obstructive Pulmonary Disease (DC), Weakness (GEN) Additional Instructions: Complete Cipro dose. Albuterol sent to pharmacy. Combivent respimat provided for patient here in the hospital. Script also sent to pharmacy. continue to work with physical therapy to help build physical strength and functioning. Follow up with PCP within 3-5 days of discharg from rehab facility. Return to the ER re any new or worsening symptoms such as SOB, NILAM, CP, worsening weakness, confusion.
[2016-10-26 06:37] LABS: BASO % 0.3 % (0-6); EOS % 4.2 % (0-6); GRAN % 63.6 % (47-80); HEMATOCRIT 37.5 % (42.0-52.0); HEMOGLOBIN 12.1 gm/dl (14.0-18.0); LYMPH % 20.8 % (16-45); MEAN CELL VOLUME 93.3 fl (81-97); MEAN CORPUSCULAR HGB CONC 32.3 g/dl (32-36); MEAN PLATELET VOLUME 9.1 fl (7.4-10.4); MONO % 11.1 % (0-9); PLATELET COUNT 86 K/uL (130-400); RED BLOOD COUNT 4.02 M/uL (4.40-5.70); WHITE BLOOD COUNT W/O DIFF 3.6 K/uL (4.2-12.2)
[2016-10-26 06:53] LABS: ANION GAP 13.4 (7-16); BLOOD UREA NITROGEN 18 mg/dL (9-20); CARBON DIOXIDE 19.6 mmol/L (22-30); CREATININE 1.1 mg/dL (0.66-1.25); EST GLOMERULAR FILTRATION RATE > 60 ml/min; GLUCOSE,RANDOM 195 mg/dL (70-110)
[2016-10-26] MEDS: IPRATROPIUM/ALBUTEROL (0.5MG/3MG) NEB INH PRN (07:32)
[2016-10-26] MEDS: GUAIFENESIN 1,200 MG TABLET PO SCH (10:26)
[2016-10-26] MEDS: FOLIC ACID 1 MG TABLET PO SCH (10:26)
[2016-10-26] MEDS: ENOXAPARIN 40 MG/0.4 ML SYR SQ SCH (10:26)
[2016-10-26] MEDS: SOTALOL HCL 80 MG TABLET PO SCH (10:26)
[2016-10-26] MEDS: THIAMINE MONONITRATE 100 MG TABLET PO SCH (10:27)
[2016-10-26] MEDS: CIPROFLOXACIN HCL 500 MG TABLET PO SCH (10:27)
[2016-10-26] MEDS: GABAPENTIN 300 MG CAPSULE PO SCH (10:27)
[2016-10-26] MEDS: CYANOCOBALAMIN (VITAMIN B-12) 100 MCG TABLET PO SCH (10:28)
[2016-10-26] MEDS ORDERED: IPRATROPIUM/ALBUTEROL 4 GM INH INH PRN (10:34)
== END 2016-10-26 11:30 | DRG 556 ==
LOC: ER 20:30 → MEDSURG 22:32
PROVIDERS: ADMIT Family Medicine; ATTEND Family Medicine
DX: N28.9 Disorder of kidney and ureter, unspecified (principal); R53.1 Weakness; E87.5 Hyperkalemia; M62.81 Muscle weakness (generalized); E46 Unspecified protein-calorie malnutrition; N39.0 Urinary tract infection, site not specified; J44.1 Chronic obstructive pulmonary disease with (acute) exacerbation; E86.0 Dehydration; Z79.899 Other long term (current) drug therapy; E87.8 Other disorders of electrolyte and fluid balance, not elsewhere classified; I10 Essential (primary) hypertension; I50.9 Heart failure, unspecified; Z78.9 Other specified health status
CPT/HCPCS: 82550; 83605; 82140; 82553; 84484; 80053; 85027; 71020; G0480; 80048; 80320; 81001; 82310; 85025; 85610; 94640; 94664; 94760; 94761; 96360; 97161; 97165; 99223; 99233; 99239; 99285; G0477; J1650; J7030

== ENCOUNTER 2017-04-13 15:08 | Emergency (ER) | payer MEDICARE, BC ==
--- NOTE | 2017-04-13 15:45 | Emergency Department Record ---
History of Present Illness - General Chief complaint: Lower Extremity Pain Stated complaint: LEG PAIN Time Seen by Provider: 04/13/17 15:10 Source: Patient Mode of Arrival: EMS Limitations: No limitations - History of Present Illness Initial comments: 77 yo male presents from home after a reported fall. The patient lives on his own. He states he fell. He does not recall when or how. He states he has not been able to bear weight on the right hip since then. He does not think he hit his head. He denies any chest, back or abdominal pain. He points to his right hip as the source. He admits to drinking last night after learning his dog . MD Complaint: Extremity pain, Joint pain -: Unknown Location: Right, Thigh History of Same: No Radiation: Distal Severity scale (1-10): 5 Quality: Other Consistency: Constant Improves with: Nothing Worsens with: Nothing Associated Symptoms: Denies other symptoms - Related Data Home Medications Medication Instructions Recorded Confirmed Last Taken Thiamine HCl [Vitamin B-1] 100 mg PO DAILY 12/17/14 04/13/17 09/14/15 Gabapentin 300 mg PO TID 10/23/16 04/13/17 Unknown Omeprazole [Prilosec] 20 mg PO DAILY 10/23/16 04/13/17 Unknown Sotalol HCl [Betapace] 80 mg PO BID 10/23/16 04/13/17 Unknown Previous Rx's Medication Instructions Recorded Cyanocobalamin (Vitamin B-12) 1,000 mcg SC DAILY vial 10/22/15 [Vitamin B-12] Folic Acid 1 mg PO DAILY tablet 10/22/15 Calcium Carbonate [Tums] 500 mg PO Q4H PRN #120 tab.chew 03/13/16 Loperamide HCl [Immodium] 2 mg PO Q4H PRN #120 capsule 03/13/16 Albuterol Sulfate [Ventolin Hfa] 1 - 2 puff IH .EVERY 4-6 HOURS PRN 10/26/16 #1 inhaler Ciprofloxacin HCl [Cipro] 500 mg PO BID #15 tablet 10/26/16 Ipratropium/Albuterol Sulfate 1 - 2 puff IH BID #1 inh 10/26/16 [Combivent] Allergies Allergy/AdvReac Type Severity Reaction Status Date / Time No Known Drug Allergies Allergy Verified 04/13/17 15:26 Travel Screening - Travel/Exposure Within Last 30 Days Have you traveled within the last 30 days?: No Review of Systems Constitutional: Denies: Chills, Fever, Malaise, Weight change Eyes: Denies: Eye discharge, Eye pain, Photophobia ENT: Denies: Congestion, Throat pain Respiratory: Denies: Cough, Dyspnea, Hemoptysis, Stridor, Wheezes Cardiovascular: Denies: Chest pain, Palpitations, Syncope Endocrine: Denies: Fatigue Gastrointestinal: Denies: Abdominal pain, Nausea, Vomiting Genitourinary: Denies: Dysuria, Frequency, Hematuria Musculoskeletal: Reports: Arthralgia Skin: Denies: Bruising, Change in color, Rash Neurological: Denies: Headache, Numbness, Weakness Psychiatric: Denies: Anxiety Hematological/Lymphatic: Denies: Blood Clots, Easy bleeding, Easy bruising, Swollen glands Past Medical History - SOCIAL HISTORY Smoking Status: Former smoker Alcohol Use: Heavy Alcohol Use Comment: 1 pint/daily Drug Use: None - RESPIRATORY Hx Respiratory Disorders: Yes Hx Pneumonia: Yes - CARDIOVASCULAR Hx Cardio Disorders: Yes Hx CHF: Yes Hx Hypertension: Yes - NEURO Hx Neuro Disorders: No - GI Hx GI Disorders: No - Hx Genitourinary Disorders: No Hx UTI: Yes - ENDOCRINE Hx Endocrine Disorders: No - MUSCULOSKELETAL Hx Musculoskeletal Disorders: Yes Hx Arthritis: Yes - PSYCH Hx Psych Problems: No - HEMATOLOGY/ONCOLOGY Hx Hematology/Oncology Disorders: No Family Medical History Any Significant Family History?: Yes Hx Alcohol Use: Father Hx Cancer: Mother *Cancer Comment: pancreatic cancer- Hx Dementia: Mother Hx Stroke: Father Physical Exam - General General Appearance: Alert, Oriented x3, Cooperative, No acute distress Limitations: No limitations - Head Head exam: Atraumatic, Normocephalic, Normal inspection - Eye Eye exam: Normal appearance. negative: Conjunctival injection, Periorbital swelling - ENT ENT exam: Normal exam, Mucous membranes moist Ear exam: Normal external inspection Nasal Exam: Normal inspection Mouth exam: Normal external inspection - Neck Neck exam: Normal inspection, Full ROM. negative: Tenderness - Respiratory Respiratory exam: Normal lung sounds bilaterally. negative: Chest wall tenderness, Decreased breath sounds, Respiratory distress, Rhonchi, Stridor, Wheezes - Cardiovascular Cardiovascular Exam: Regular rate, Normal rhythm, Normal heart sounds Peripheral Pulses: 2+: Radial (R), Radial (L) - GI/Abdominal GI/Abdominal exam: Soft. negative: Distended, Guarding, Tenderness - Rectal Rectal exam: Deferred - exam: Deferred - Extremities Extremities exam: Normal inspection, Normal capillary refill, Tenderness. negative: Full ROM Image of Full Body: 1 - tender lateral hip, pain with ROM, normal appearing skin - Back Back exam: Denies: CVA tenderness (R), CVA tenderness (L), Paraspinal tenderness , Tenderness, Vertebral tenderness - Neurological Neurological exam: Abnormal gait (unable to stand due to pain), Alert - Psychiatric Psychiatric exam: Normal affect, Normal mood. negative: Agitated, Anxious - Skin Skin exam: Dry, Intact, Normal color, Warm Course Vital Signs 04/13/17 15:12 Temperature 97.4 F L Pulse Rate 71 Respiratory 20 Rate Blood Pressure 166/83 Pulse Ox 92 L - Reevaluation(s) Reevaluation #1: The CBC was normal The CMP was negative The alcohol was elevated at .284 The headCT was negative, The cervical CT was negative for acute injury, chronic degenerative changes were noted The XR of the hip was negative for acute fracture 04/13/17 16:40 04/13/17 16:42 Reevaluation #2: EKG 16:37 NSR rate 65, Intervals RBBB, [place] left, PVC, ST NS changes. Prior EKG with BBB as well on 10/18/15 04/13/17 16:44 Unable to sit up or bear weight due to right hip pain CT ordered 04/13/17 16:54 04/13/17 18:20 CT scan performed The patient has a non displaced basicervical suggestion of fracture per the radiology read I discussed the case with the radiologist I discussed the results with the patient. He does not have an orthopedist. He prefers [facility] for transfer. 04/13/17 18:33 Reevaluation #3: I AMBER Henderson at [facility] He accepts the patient for transfer and ortho consultation 04/13/17 18:37 Medical Decision Making - Lab Data Result diagrams: 04/13/17 15:52 04/13/17 15:52 Disposition Disposition: Transfer Clinical Impression: Alcohol intoxication Qualifiers: Complication of substance-induced condition: uncomplicated Qualified Code(s): F10.920 - Alcohol use, unspecified with intoxication, uncomplicated Contusion of hip, right Qualifiers: Encounter type: initial encounter Qualified Code(s): S70.01XA - Contusion of right hip, initial encounter Hip fracture Qualifiers: Encounter type: initial encounter Fracture type: closed Laterality: right Qualified Code(s): S72.001A - Fracture of unspecified part of neck of right femur, initial encounter for closed fracture Disposition: Acute Care Hospital Transfer Transfer To: [facility] Reason For Transfer: Hip Fracture Accepting Physician: Beatriz Time Discussed w/Accepting Physician: 18:37 Condition: (1) Good Forms: Patient Portal Access Time of Disposition: 18:37 Quality - Quality Measures Quality Measures: N/A - Blood Pressure Screening View Details: Yes Blood Pressure Classification: Pre-Hypertensive BP Reading Systolic Measurement: 166 Diastolic Measurement: 83 Screening for High Blood Pressure: < Pre-Hypertensive BP, F/U Documented > [ G8950] Pre-Hypertensive Follow-up Interventions: Referral to alternative/primary care provider.
[2017-04-13 15:58] LABS: HEMATOCRIT 40.2 % (42.0-52.0); HEMOGLOBIN 13.3 gm/dl (14.0-18.0); MEAN CELL VOLUME 93.3 fl (81-97); MEAN CORPUSCULAR HGB CONC 33.1 g/dl (32-36); MEAN PLATELET VOLUME 8.7 fl (7.4-10.4); PLATELET COUNT 134 K/uL (130-400); RED BLOOD COUNT 4.31 M/uL (4.40-5.70); WHITE BLOOD COUNT W/O DIFF 4.8 K/uL (4.2-12.2)
[2017-04-13 16:00] LABS: MEAN CORPUSCULAR HEMOGLOBIN 30.8 pg (27-33)
[2017-04-13 16:14] LABS: INR 1.16; PROTHROMBIN TIME (PATIENT) 12.5 SECONDS (9.5-12.1)
[2017-04-13 16:22] LABS: ALB/GLOB RATIO 1.3 (1.1-1.8); ALBUMIN 3.8 gm/dL (3.5-5.0); ALKALINE PHOSPHATASE 91 U/L (38-126); ALT/SGPT 32 U/L (21-72); ANION GAP 14.7 (7-16); AST/SGOT 21 U/L (17-59); BILIRUBIN,TOTAL 1.04 mg/dL (0.2-1.3); BLOOD UREA NITROGEN 13 mg/dL (9-20); CARBON DIOXIDE 23.3 mmol/L (22-30); CREATINE PHOSPHOKINASE 57 U/L (55-170); CREATININE 0.9 mg/dL (0.66-1.25); EST GLOMERULAR FILTRATION RATE > 60 ml/min; GLUCOSE,RANDOM 179 mg/dL (70-110); PLATELET ESTIMATE NORMAL (NORMAL); TOTAL PROTEIN 6.8 gm/dL (6.3-8.2)
[2017-04-13 16:25] LABS: ALCOHOL 0.284 g/dL (0-0.010)
[2017-04-13 16:34] LABS: CKMB 2.1 ug/L (0-6)
[2017-04-13 16:37] LABS: TROPONIN I < 0.012 ng/mL (0.00-0.034)
[2017-04-13 16:43] LABS: ABO GROUP A; ANTIBODY SCREEN NEGATIVE (NEGATIVE); RH TYPE POSITIVE
[2017-04-13 16:53] LABS: THYROID STIMULATING HORMONE 0.52 uIU/ml (0.465-4.68)
[2017-04-13 17:09] LABS: URINE APPEARANCE CLEAR; URINE BILIRUBIN NEGATIVE (NEGATIVE); URINE BLOOD TRACE-I (NEGATIVE); URINE COLOR YELLOW; URINE GLUCOSE (UA) NEGATIVE (NEGATIVE); URINE KETONE TRACE (NEGATIVE); URINE LEUKOCYTE ESTERASE NEGATIVE (NEGATIVE); URINE NITRITE NEGATIVE (NEGATIVE); URINE PROTEIN TRACE (NEGATIVE); URINE UROBILINOGEN 0.2 E.U./dL (0.20 - 1.00)
[2017-04-13 17:14] LABS: URINE EPITHELIAL CELLS NONE SEEN (FEW); URINE RBC 0 - 2 (NONE SEEN); URINE WBC NONE SEEN (0-2/hpf)
[2017-04-13] MEDS: ACETAMINOPHEN 1,000 MG/100 ML BTL IVPB ONE (17:20)
--- NOTE | 2017-04-14 22:37 | CT SCAN REPORT ---
EXAM: CT SCAN HEAD WO CONTRAST HISTORY: FALL AT HOME. TECHNIQUE: SEQUENTIAL AXIAL IMAGES WERE OBTAINED FROM THE FORAMEN [place]NUM TO THE VERTEX WITHOUT CONTRAST ADMINISTRATION. FINDINGS: The brain volume is normal. There is mild periventricular small vessel ischemia. There is no large territorial infarct, hemorrhage, mass effect , or midline shift. There is mild pansinus disease. No depressed skull fracture. IMPRESSION: 1. PERIVENTRICULAR SMALL VESSEL ISCHEMIA. 2. PANSINUS DISEASE. JOB NUMBER: [id number] MTDD
--- NOTE | 2017-04-14 22:43 | CT SCAN REPORT ---
EXAM: CT SCAN CERVICAL SPINE WO CONTRAST HISTORY: FALL AT HOME. TECHNIQUE: SEQUENTIAL AXIAL IMAGES WERE OBTAINED THROUGH THE CERVICAL SPINE WITHOUT INTRAVENOUS CONTRAST ADMINISTRATION. SAGITTAL AND CORONAL REFORMATTED IMAGES WERE PERFORMED. FINDINGS: There is multilevel degenerative change. No compression fracture deformity. No evidence of fracture, subluxation, or perched facet. There is bilateral neural foraminal narrowing at C3-4 through C6-7 levels. There is pannus formation posterior to the dens. IMPRESSION: 1. NO EVIDENCE OF ACUTE FRACTURE, SUBLUXATION, OR PERCHED FACET. 2. MULTILEVEL DEGENERATIVE CHANGE. THERE IS SOME BILATERAL NEURAL FORAMINAL NARROWING AT THE C3-4 THROUGH C6-7 LEVELS. 3. PANNUS FORMATION POSTERIOR TO THE DENS. JOB NUMBER: [id number] MTDD
--- NOTE | 2017-04-14 22:48 | RADIOLOGY REPORT ---
EXAM: HIP,UNILAT, 2-3 VIEW RIGHT HISTORY: PAIN. TECHNIQUE: SINGLE AP VIEW OF THE PELVIS, AP AND FROG-LEG VIEWS OF THE RIGHT HIP WERE PERFORMED. FINDINGS: There is osteopenia. No evidence of fracture or dislocation. No joint space narrowing. No lytic or blastic lesion. IMPRESSION: OSTEOPENIA. NO EVIDENCE OF FRACTURE OR DISLOCATION. JOB NUMBER: [id number] MTDD
--- NOTE | 2017-04-14 23:07 | CT SCAN REPORT ---
EXAM: CT SCAN PELVIS WO CONTRAST HISTORY: FALL. TECHNIQUE: SEQUENTIAL AXIAL IMAGES WERE OBTAINED THROUGH THE PELVIS WITHOUT INTRAVENOUS CONTRAST ADMINISTRATION. SAGITTAL AND CORONAL REFORMATTED IMAGES WERE PERFORMED. FINDINGS: There is osteopenia. There is suggestion of a nondisplaced right subcapital proximal femur fracture deformity. The superior and inferior pubic rami are intact. Left hip joint is intact. Sacroiliac joints appear normal. There is minimal sclerosis of the left sacrum. IMPRESSION: FINDINGS SUSPICIOUS FOR A NONDISPLACED FRACTURE DEFORMITY OF THE RIGHT PROXIMAL FEMORAL NECK. UNDERLYING OSTEOPENIA. JOB NUMBER: [id number] [facility]
== END 2017-04-13 19:45 | disposition short-term general hospital (02) ==
LOC: ER 15:08
DX: S72.011A Unspecified intracapsular fracture of right femur, initial encounter for closed fracture (principal); S70.01XA Contusion of right hip, initial encounter; I10 Essential (primary) hypertension; I50.9 Heart failure, unspecified; F10.920 Alcohol use, unspecified with intoxication, uncomplicated; W19.XXXA Unspecified fall, initial encounter; Y92.009 Unspecified place in unspecified non-institutional (private) residence as the place of occurrence of the external cause
CPT/HCPCS: 70450; 72125; 72192; 80053; 80320; 81001; 82550; 82553; 84443; 84484; 85027; 85610; 85730; 86850; 86900; 86901; 93005; 93010; 96365; 99285

== ENCOUNTER 2017-07-20 17:28 | Inpatient (IN) | payer MEDICARE, BC ==
[2017-07-20] MEDS ORDERED: 0.9 % SODIUM CHLORIDE 1,000 ML BAG IV ONE (17:39)
[2017-07-20] MEDS ORDERED: THIAMINE MONONITRATE 100 MG TABLET PO SCH (17:45)
[2017-07-20] MEDS ORDERED: FOLIC ACID 1 MG TABLET PO SCH (17:45)
[2017-07-20] MEDS ORDERED: MVI, ADULT NO.4 WITH VIT K 10 ML, THIAMINE HCL IV 100 MG in 0.9 % SODIUM CHLORIDE 1000M... IV ONE ×3 (17:52)
--- NOTE | 2017-07-20 17:52 | Emergency Department Record ---
History of Present Illness - General Chief complaint: General Stated complaint: NOT EATING Time Seen by Provider: 07/20/17 17:38 Source: Patient, EMS Mode of Arrival: EMS Limitations: No limitations - History of Present Illness Initial comments: 77 yo male presents with nausea, vomiting and poor appetite for about 10 days. He states he has had little or no food for the last 10 days. He has a friend that checks on him. His friend became concerned and call EMS. The patient is a known alcoholic. In March he presented to the ED with a hip injury. Hip fracture was diagnosed at that time. He was [place] [facility] [place] [facility] for rehab. The patient is now back home. His PCP is Dr Doherty [facility]. Per EMS the patient was found dishevelled and in some of his own urine. His last drink was today but he does not remember when. MD complaint: Nausea, Vomiting -: Days(s) (10) Description of Vomiting: Watery Description of Diarrhea: Water Location: Epigastric Radiation: None Severity: Mild Worsens with: Eating Context: Alcohol abuse Associated Symptoms: Loss of appetite, Weakness - Related Data Previous Rx's Medication Instructions Recorded Cyanocobalamin (Vitamin B-12) 1,000 mcg SC DAILY vial 10/22/15 [Vitamin B-12] Folic Acid 1 mg PO DAILY tablet 10/22/15 Allergies Allergy/AdvReac Type Severity Reaction Status Date / Time No Known Drug Allergies Allergy Verified 04/13/17 15:26 Travel Screening - Travel/Exposure Within Last 30 Days Have you traveled within the last 30 days?: No Review of Systems Constitutional: Reports: Malaise, Weakness. Denies: Chills, Fever Eyes: Denies: Eye discharge, Eye pain, Photophobia, Vision change ENT: Denies: Congestion, Throat pain Respiratory: Denies: Cough, Dyspnea, Hemoptysis, Stridor, Wheezes Cardiovascular: Denies: Chest pain, Palpitations, Syncope Endocrine: Reports: Fatigue. Denies: Polydipsia, Polyuria Gastrointestinal: Reports: As per HPI, Abdominal pain, Diarrhea, Nausea, Vomiting Genitourinary: Denies: Dysuria, Frequency, Urgency Musculoskeletal: Denies: Arthralgia, Back pain, Myalgia Skin: Denies: Bruising, Change in color, Rash Neurological: Reports: Weakness (generalized). Denies: Numbness Psychiatric: Denies: Anxiety Hematological/Lymphatic: Denies: Blood Clots, Easy bleeding, Easy bruising, Swollen glands Past Medical History - SOCIAL HISTORY Smoking Status: Former smoker Alcohol Use: Heavy Drug Use: None - RESPIRATORY Hx Respiratory Disorders: Yes Hx Pneumonia: Yes - CARDIOVASCULAR Hx Cardio Disorders: Yes Hx CHF: Yes Hx Hypertension: Yes - NEURO Hx Neuro Disorders: No - GI Hx GI Disorders: No Hx Liver Disease: Yes ("I think so") Comment:: "I don't know" - Hx Genitourinary Disorders: Yes Hx UTI: Yes - ENDOCRINE Hx Endocrine Disorders: No Hx Diabetes: No Hx Thyroid Disease: No - MUSCULOSKELETAL Hx Musculoskeletal Disorders: Yes Hx Arthritis: Yes - PSYCH Hx Psych Problems: No - HEMATOLOGY/ONCOLOGY Hx Hematology/Oncology Disorders: No Family Medical History Any Significant Family History?: Yes Hx Alcohol Use: Father Hx Cancer: Mother *Cancer Comment: pancreatic cancer- Hx Dementia: Mother Hx Stroke: Father Physical Exam - General General Appearance: Alert, Oriented x3, Cooperative, No acute distress, Other ( thin, frail, oder of urine) Limitations: No limitations - Head Head exam: Atraumatic, Normocephalic, Normal inspection - Eye Eye exam: Normal appearance, EOMI (chronic disconjugate gaze). negative: Conjunctival injection, Periorbital swelling - ENT ENT exam: Normal exam, Mucous membranes moist Ear exam: Normal external inspection Nasal Exam: Normal inspection Mouth exam: Other (None) Throat exam: Normal inspection - Neck Neck exam: Normal inspection, Full ROM. negative: Tenderness - Respiratory Respiratory exam: Normal lung sounds bilaterally. negative: Respiratory distress - Cardiovascular Cardiovascular Exam: Normal rhythm, Tachycardia Peripheral Pulses: 2+: Radial (R), Radial (L) - GI/Abdominal GI/Abdominal exam: Soft. negative: Distended, Guarding, Rebound, Rigid, Tenderness - Rectal Rectal exam: Deferred - exam: Deferred - Extremities Extremities exam: Normal inspection, Full ROM, Normal capillary refill, Other ( Well healed right hip surgery site). negative: Tenderness - Back Back exam: Reports: Normal inspection, Full ROM. Denies: CVA tenderness (R), CVA tenderness (L), Muscle spasm, Rash noted, Tenderness - Neurological Neurological exam: Alert, Normal gait, Oriented X3, Reflexes normal - Psychiatric Psychiatric exam: Normal affect, Normal mood - Skin Skin exam: Dry, Intact, Normal color, Warm Course Vital Signs 07/20/17 17:31 Temperature 98.1 F Pulse Rate 117 H Respiratory 20 Rate Blood Pressure 140/83 Pulse Ox 94 L - Reevaluation(s) Reevaluation #1: 07/20/17 18:47 The labs were reviewed The CBC is negative The CMP is negative The magnesium is low at 1.5 The alcohol is .374 No acute changes in the coag's 07/20/17 19:01 Given the deconditioned state, alcohol abuse, weakness, dehydration the patient will be admitted for monitoring, electrolyte replacement, CIWA scores, fall risks. I AMBER Weinberg who will admit the patient for futher work up, admission, social work consultation Medical Decision Making - Lab Data Result diagrams: 07/20/17 17:42 07/20/17 17:42 Disposition Disposition: Admit Clinical Impression: Alcohol abuse, Generalized muscle weakness, Malnutrition, Dehydration Disposition: Still a Patient at [facility] Decision to Admit: Admit from ER Decision to Admit Date: 07/20/17 Decision to Admit Time: 19:03 Condition: (2) Stable Forms: Patient Portal Access Time of Disposition: 19:03 Quality - Quality Measures Quality Measures: N/A - Blood Pressure Screening Does Patient Have Any of the Following: No Blood Pressure Classification: Pre-Hypertensive BP Reading Systolic Measurement: 140 Diastolic Measurement: 83 Screening for High Blood Pressure: < Pre-Hypertensive BP, F/U Documented > [ G8950] Pre-Hypertensive Follow-up Interventions: Referral to alternative/primary care provider.
[2017-07-20 17:53] LABS: BASO % 0.2 % (0-6); EOS % 2.6 % (0-6); GRAN % 67.5 % (47-80); HEMATOCRIT 38.5 % (42.0-52.0); HEMOGLOBIN 12.8 gm/dl (14.0-18.0); LYMPH % 23.3 % (16-45); MEAN CELL VOLUME 99.7 fl (81-97); MEAN CORPUSCULAR HGB CONC 33.2 g/dl (32-36); MEAN PLATELET VOLUME 8.5 fl (7.4-10.4); MONO % 6.4 % (0-9); RED BLOOD COUNT 3.86 M/uL (4.40-5.70); RED CELL DISTRIBUTION WIDTH 17.8 % (11.5-14.5)
[2017-07-20] MEDS ORDERED: MVI, ADULT NO.4 WITH VIT K 10 ML, THIAMINE HCL IV 100 MG in 0.9 % SODIUM CHLORIDE 1000M... IV SCH ×3 (18:00)
[2017-07-20 18:02] LABS: INR 1.03; PARTIAL THROMBOPLASTIN TIME 28.7 SECONDS (24.5-39.1); PROTHROMBIN TIME (PATIENT) 11.1 SECONDS (9.5-12.1)
[2017-07-20 18:05] LABS: ALB/GLOB RATIO 1.3 (1.1-1.8); ALBUMIN 3.9 g/dL (4.0-5.0); ALKALINE PHOSPHATASE 116 U/L (40-129); ALT/SGPT 19 U/L (<41); AST/SGOT 55 U/L (10.0-50.0); BLOOD UREA NITROGEN 7 mg/dL (8-23); CREATININE 0.7 mg/dL (0.7-1.2); EST GLOMERULAR FILTRATION RATE > 60 mL/min; GLUCOSE,RANDOM 129 mg/dL (74-109); TOTAL PROTEIN 6.8 g/dL (6.6-8.7)
[2017-07-20 18:06] LABS: ALCOHOL 0.374 g/dL (0-0.010)
[2017-07-20 18:07] LABS: MEAN CORPUSCULAR HEMOGLOBIN 33.1 pg (27-33); PLATELET COUNT 81 K/uL (130-400)
[2017-07-20] MEDS ORDERED: LORAZEPAM 2 MG/ML VIAL IV ONE (18:45)
[2017-07-20] MEDS ORDERED: MAGNESIUM SULFATE 16 MEQ in 0.9 % SODIUM CHLORIDE 100ML 100 ML IV ONE (18:50)
[2017-07-20] MEDS ORDERED: ONDANSETRON HCL IV 4 MG/2 ML VIAL IVP PRN (20:09)
[2017-07-20] MEDS ORDERED: LORAZEPAM 2 MG/ML VIAL IV PRN (20:09)
[2017-07-20] MEDS ORDERED: 0.9 % SODIUM CHLORIDE 1000ML 1,000 ML IV PRN (20:09)
[2017-07-20] MEDS: GABAPENTIN 300 MG CAPSULE PO SCH (22:01)
[2017-07-20] MEDS: SOTALOL HCL 80 MG TABLET PO SCH (22:02)
[2017-07-20 23:17] LABS: URINE APPEARANCE CLEAR; URINE BILIRUBIN NEGATIVE (NEGATIVE); URINE COLOR YELLOW; URINE GLUCOSE (UA) NEGATIVE (NEGATIVE); URINE KETONE NEGATIVE (NEGATIVE); URINE LEUKOCYTE ESTERASE NEGATIVE (NEGATIVE); URINE NITRITE NEGATIVE (NEGATIVE); URINE PROTEIN NEGATIVE (NEGATIVE); URINE UROBILINOGEN 0.2 E.U./dL (0.20 - 1.00)
[2017-07-20 23:18] LABS: URINE BLOOD NEGATIVE (NEGATIVE)
[2017-07-20] MEDS: PANTOPRAZOLE SODIUM 40 MG TABLET PO SCH (23:41)
[2017-07-21] MEDS ORDERED: ZINC OXIDE 28.35 GM TUBE TOP PRN (05:15)
[2017-07-21 06:50] LABS: ALB/GLOB RATIO 1.3 (1.1-1.8); ALBUMIN 3.2 g/dL (4.0-5.0); ALKALINE PHOSPHATASE 99 U/L (40-129); ALT/SGPT 17 U/L (<41); AST/SGOT 61 U/L (10.0-50.0); BLOOD UREA NITROGEN 10 mg/dL (8-23); CREATININE 0.7 mg/dL (0.7-1.2); EST GLOMERULAR FILTRATION RATE > 60 mL/min; GLUCOSE,RANDOM 77 mg/dL (74-109); TOTAL PROTEIN 5.6 g/dL (6.6-8.7)
[2017-07-21] MEDS: PANTOPRAZOLE SODIUM 40 MG TABLET PO SCH (08:30)
[2017-07-21] MEDS: SOTALOL HCL 80 MG TABLET PO SCH ×2 (09:13→22:24)
[2017-07-21] MEDS: FOLIC ACID 1 MG TABLET PO SCH (09:14)
[2017-07-21] MEDS: GABAPENTIN 300 MG CAPSULE PO SCH ×3 (09:14→22:24)
[2017-07-21] MEDS: CYANOCOBALAMIN 1000 MCG/ML VIAL SC SCH (09:14)
[2017-07-21] MEDS ORDERED: ENOXAPARIN 40 MG/0.4 ML SYR SC SCH (10:00)
--- NOTE | 2017-07-21 13:08 | Rehab Evaluation ---
Patient Information - Patient Information Diagnosis: Dehydration, weakness, alcohol abuse Ordered Treatment: PT Evaluate and Treat Status: Initial Evaluation History: Detail (The patient presented in ED on 07/20/17 with complaints of nausea and vomiting.) Past Medical/Surgical Hx: PAST MEDICAL/SURGICAL HISTORY Past Surgical History hernia repair carbuncle removed from groin PMH - Respiratory Hx Respiratory Disorders Yes Hx Pneumonia Yes PMH - Cardiovascular Hx Cardiovascular Disorders Yes Hx Congestive Heart Failure Yes Hx Hypertension Yes PMH - Neuro Hx Neurological Disorders No PMH - GI Hx Gastrointestinal Disorders No Hx Liver Disease Yes: "I think so" Comment: "I don't know" PMH - Hx Genitourinary Disorders Yes Hx Urinary Tract Infection Yes PMH - Endocrine Hx Endocrine Disorders No Hx Diabetes No Hx Thyroid Disease No PMH - Musculoskeletal Hx Musculoskeletal Disorders Yes Hx Arthritis Yes PMH - Psych Hx Psychiatric Problems No Comment: chronic ETOH abuse PMH - Hematology/Oncology Hx Hematology/Oncology No Disorders Premorbid Status: Detail (The patient was ambulating with 4 wheeled walker independently and completing all ADL's independently.) Social History: Detail (The patient lives with a roommate in a two story home with a basement, living on the first floor. The home has ramp at the enterance. The house is equipped with a bathroom with a walk in shower with a seat and an elevated toilet, with grab bars present by both the toilet and the tub.) Precautions: [place], Fall - Time With Patient Total Time Spent With Patient (Min): 30 Treatment Procedures: Detail (Initial Evaluation.) Subjective Information - Subjective Information Per Patient (The patient had no complaints of pain.) Objective Data - Mental Status Patient Orientation: Oriented x3 (The patient knew his birthdate, current month and year.) - Visual Perception Appears within normal limits for therapeutic activities - ROM Within normal limits (The patient's LE AROM and Trunk AROM are WNL. Refer to OT for UE ROM.) - Strength/Tone Within normal limits (The patient's LE strength is generally 4+ to 5/5 except for hip flexors bilaterally which are 4-/5 and knee flexors which are 4/5. Refer to OT note for UE strength grades.) - Bed Mobility Independent (The patient was independent with supine to sit transfer and scooting forward in a seated position.) - Transfers Independent (The patient was independent with sit to and from stand transfer and toilet transfer.) - Balance Balance Sitting: Good (The patient was able to maintain his balance unsupported and put his socks on, however he did exhibit a right trunk lean.) Balance Standing: Good (The patient was able to stand without support and pull his pants up and down while maintaining his balance.) - Gait Detail (The patient ambulated 13 feet x 2 with 2 wheeled walker and 2L of O2 with assistance for equipment only ( IV and O2). The patient's gait pattern was charecterized by decreased stride length and shuffling gait pattern.) Therapy Assessment - Therapy Assessment Detail (The patient was independent with all mobility and ambulation, requiring assist with equipment only. The patient exhibited minimal strength deficits in hip flexors and hamstrings. Feel the patient does not require skilled PT at this time due to independence with all mobility and ambulation.) Goals - Goals Physical Therapy Goals: The patient is independent with all mobility and transfers . No PT goals at this time. Plan - Plan Physical Therapy Plan: Patient to ambulate with Nursing staff as needed for supervision due to equipment.
--- NOTE | 2017-07-21 15:02 | Rehab Evaluation ---
Patient Information - Patient Information Diagnosis: Dehydration, weakness, alcohol abuse Ordered Treatment: OT Evaluate and Treat Status: Initial Evaluation Surgery: No History: Detail (The patient presented in ED on 07/20/17 with complaints of nausea and vomiting.) Past Medical/Surgical Hx: PAST MEDICAL/SURGICAL HISTORY Past Surgical History hernia repair carbuncle removed from groin PMH - Respiratory Hx Respiratory Disorders Yes Hx Pneumonia Yes PMH - Cardiovascular Hx Cardiovascular Disorders Yes Hx Congestive Heart Failure Yes Hx Hypertension Yes PMH - Neuro Hx Neurological Disorders No PMH - GI Hx Gastrointestinal Disorders No Hx Liver Disease Yes: "I think so" Comment: "I don't know" PMH - Hx Genitourinary Disorders Yes Hx Urinary Tract Infection Yes PMH - Endocrine Hx Endocrine Disorders No Hx Diabetes No Hx Thyroid Disease No PMH - Musculoskeletal Hx Musculoskeletal Disorders Yes Hx Arthritis Yes PMH - Psych Hx Psychiatric Problems No Comment: chronic ETOH abuse PMH - Hematology/Oncology Hx Hematology/Oncology No Disorders Premorbid Status: Detail (The patient lives with a roommate who is present only during the day, in a two story home with a basement, living on the first floor. The home has ramp at the entrance. The bathroom is equipped with a walk in shower with a seat and an elevated toilet, with grab bars present by both the toilet and the tub. The patient was ambulating with 4 wheeled walker independently and completing all ADL's independently.) Precautions: [place], Fall - Time With Patient Total Time Spent With Patient (Min): 30 Treatment Procedures: Detail (OT eval low complexity) Subjective Information - Subjective Information Per Patient Objective Data - Pain Pain Present: No - Mental Status Patient Orientation: Oriented x3 - Visual Perception Deficit (Pt reports he has a lazy eye but vision is good in both eyes after recent cataract surgery.) - ROM Within normal limits (Johnnie UE AROM WNL) - Strength/Tone Within normal limits (Johnnie UE MMT 4+/5 throughout) - Coordination Appears within normal limits for therapeutic activities - Bed Mobility Independent (Ind with supine to sit) - Transfers Independent (Ind with sit to stand from EOB, commode and chair.) - Balance Balance Sitting: Good Balance Standing: Good - Sensation Intact - Gait Detail (Pt able to ambulate in room with 2 wheeled walker using 2 liters of oxygen.) - ADL's/IADL's Detail (Pt Ind with toileting including donning briefs and standing to pull pants up. Pt able to don sock type slippers Indly at EOB.) Therapy Assessment - Therapy Assessment Detail (Pt Ind with functional mobility in room, no c/o pain, shortness of breath or fatigue with evaluation. WNL UE strength and ROM. Ind with toileting and partial LE dressing. No functional limitations anticipated based on evaluation findings.) Problem List - Problem List Occupational Therapy Problem List: Detail (No current OT problems identified from evaluation findings.) Goals - Goals Physical Therapy Goals: The patient is independent with all mobility and transfers . No PT goals at this time. Occupational Therapy Goals: No current OT goals identified at this time. Plan - Plan Physical Therapy Plan: Patient to ambulate with Nursing staff as needed for supervision due to equipment. Occupational Therapy Plan: No further IP OT recommended at this time. Thank you for this referral.
[2017-07-22] MEDS: PANTOPRAZOLE SODIUM 40 MG TABLET PO SCH (06:47)
[2017-07-22 06:55] LABS: BASO % 0.3 % (0-6); EOS % 1.6 % (0-6); GRAN % 68.8 % (47-80); HEMATOCRIT 34.2 % (42.0-52.0); HEMOGLOBIN 10.9 gm/dl (14.0-18.0); LYMPH % 19.7 % (16-45); MEAN CELL VOLUME 100.9 fl (81-97); MEAN CORPUSCULAR HGB CONC 31.9 g/dl (32-36); MEAN PLATELET VOLUME 8.9 fl (7.4-10.4); MONO % 9.6 % (0-9); RED BLOOD COUNT 3.39 M/uL (4.40-5.70); RED CELL DISTRIBUTION WIDTH 17.9 % (11.5-14.5); WHITE BLOOD COUNT W/O DIFF 3.8 K/uL (4.2-12.2)
[2017-07-22 07:04] LABS: ALB/GLOB RATIO 1.4 (1.1-1.8); ALBUMIN 3.3 g/dL (4.0-5.0); ALKALINE PHOSPHATASE 97 U/L (40-129); ALT/SGPT 14 U/L (<41); AST/SGOT 33 U/L (10.0-50.0); BLOOD UREA NITROGEN 13 mg/dL (8-23); CREATININE 0.7 mg/dL (0.7-1.2); EST GLOMERULAR FILTRATION RATE > 60 mL/min; GLUCOSE,RANDOM 159 mg/dL (74-109); TOTAL PROTEIN 5.6 g/dL (6.6-8.7)
[2017-07-22 07:16] LABS: MEAN CORPUSCULAR HEMOGLOBIN 32.1 pg (27-33); PLATELET COUNT 64 K/uL (130-400)
--- NOTE | 2017-07-22 09:31 | History & Physical ---
History of Present Illness - Date of Service Date of Service for History & Physical: 07/21/17 - History of Present Illness Admitting Diagnosis: dehdyration, weakness, alcohol abuse, intractable vomiting , deconditioning History of Present Illness: 77yo male presents to ED by EMS w/ CC of dehydration and weakness. PMHx consists of etoh abuse, CHF, HTN, arthritis, liver disease, and pancytopenia. Patient presented to the ED after friend called EMS. friend became concerned because Walter hadn't been eating much for the past 10 days and when he saw him yesterday noted he was very intoxicated. He was incontinent of stool, urine and had several episodes of vomiting prior to arrival. While in the ED, CBC and CMP remained largely unchanged from previous. etoh was 0.3. magnesium was low and was supplemented in ED. Given bolus of NS while in ED. UA was negative for infection. due to weakness and malnutrition patient was admitted for further monitoring and SW was consulted. 07/21/17- Patient states he is feeling better today. No more episodes of vomiting. Has been urinating well and has been up to the bathroom with assistance. Denies any abdominal pain, diarrhea, chest pain or SOB. He continues to express wish to stop drinking but is not interested in inpatient rehab. 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 I asked if he would be interested in correction residence there but says he still has a house to take care of. pcp: visiting physicians, Dr. Doherty Travel Screening - Travel/Exposure Within Last 30 Days Have you traveled within the last 30 days?: No - Travel/Exposure Within Last Year Have you traveled outside the [place] in the last year?: No - Additonal Travel Details Have you been exposed to anyone with a communicable illness?: No - Travel Symptoms Symptom Screening: Weakness, Diarrhea, Vomiting, Lack of Appetite Review of Systems Constitutional: Reports: Malaise, Weakness. Denies: Chills, Fever Eyes: Denies: Eye discharge, Eye pain, Photophobia, Vision change ENT: Denies: Congestion, Throat pain Respiratory: Denies: Cough, Dyspnea, Hemoptysis, Stridor, Wheezes Cardiovascular: Denies: Chest pain, Palpitations, Syncope Endocrine: Reports: Fatigue. Denies: Polydipsia, Polyuria Gastrointestinal: Reports: As per HPI. Denies: Abdominal pain, Diarrhea, Nausea , Vomiting Genitourinary: Denies: Dysuria, Frequency, Urgency Musculoskeletal: Denies: Arthralgia, Back pain, Myalgia Skin: Denies: Bruising, Change in color, Rash Neurological: Reports: Weakness (generalized). Denies: Numbness Psychiatric: Denies: Anxiety Hematological/Lymphatic: Denies: Blood Clots, Easy bleeding, Easy bruising, Swollen glands Past Medical History - SOCIAL HISTORY Smoking Status: Former smoker - RESPIRATORY Hx Respiratory Disorders: Yes Hx Pneumonia: Yes - CARDIOVASCULAR Hx Cardio Disorders: Yes Hx CHF: Yes Hx Hypertension: Yes - NEURO Hx Neuro Disorders: No - GI Hx GI Disorders: No Hx Liver Disease: Yes ("I think so") Comment:: "I don't know" - Hx Genitourinary Disorders: Yes Hx UTI: Yes - ENDOCRINE Hx Endocrine Disorders: No Hx Diabetes: No Hx Thyroid Disease: No - MUSCULOSKELETAL Hx Musculoskeletal Disorders: Yes Hx Arthritis: Yes - PSYCH Hx Psych Problems: No Comment:: chronic ETOH abuse - HEMATOLOGY/ONCOLOGY Hx Hematology/Oncology Disorders: No Family Medical History Any Significant Family History?: Yes Hx Alcohol Use: Father Hx Cancer: Mother *Cancer Comment: pancreatic cancer- Hx Dementia: Mother Hx Stroke: Father H&P Meds/Allergies - Allergies Allergies: Allergies Allergy/AdvReac Type Severity Reaction Status Date / Time No Known Drug Allergies Allergy Verified 04/13/17 15:26 - Home Medications Previous Rx's Medication Instructions Recorded Cyanocobalamin (Vitamin B-12) 1,000 mcg SC DAILY vial 10/22/15 [Vitamin B-12] Folic Acid 1 mg PO DAILY tablet 10/22/15 - Active Medications Active Medications: Current Medications Cyanocobalamin (Vitamin B-12) 1,000 mcg SC DAILY [facility] Last Admin: 07/21/17 09:14 Dose: 1,000 mcg Enoxaparin Sodium (Lovenox) 40 mg SC DAILY [facility] Last Admin: 07/21/17 09:14 Dose: 40 mg Folic Acid () 1 mg PO DAILY [facility] Last Admin: 07/21/17 09:14 Dose: 1 mg Gabapentin (Neurontin) 300 mg PO TID [facility] Last Admin: 07/21/17 22:24 Dose: 300 mg Sodium Chloride () 1,000 mls @ 100 mls/hr IV .Q10H PRN PRN Reason: LARGE VOLUME IV Last Admin: 07/21/17 23:45 Dose: 100 mls/hr Lorazepam (Ativan) 1 mg IV Q4H PRN PRN Reason: ANXIETY Ondansetron HCl (Zofran) 4 mg IVP Q4H PRN PRN Reason: NAUSEA Pantoprazole Sodium (Protonix) 40 mg PO DAILYAC [facility] Last Admin: 07/22/17 06:47 Dose: 40 mg Sotalol HCl (Betapace) 80 mg PO BID [facility] Last Admin: 07/21/17 22:24 Dose: 80 mg Zinc Oxide (Desitin) 28.35 gm TOP BID PRN PRN Reason: RASH Physical Exam - Vital Signs Vital Signs: Vital Signs - Last 24 Hrs Temp Pulse Resp BP Pulse Ox 07/22/17 08:56 20 07/22/17 05:59 97.7 F 69 20 176/84 96 07/21/17 20:00 99.0 F 82 18 155/75 98 07/21/17 18:00 99.5 F 86 18 153/78 94 L 07/21/17 14:00 99.5 F 86 18 153/78 94 L - General General Appearance: Alert, Oriented x3, Cooperative, No acute distress, Other ( pallor, malnourished) Limitations: No limitations - Head Head exam: Atraumatic, Normocephalic, Normal inspection - Eye Eye exam: Normal appearance, EOMI (chronic disconjugate gaze; right eye). negative: Conjunctival injection, Periorbital swelling - ENT ENT exam: Normal exam, Mucous membranes moist Ear exam: Normal external inspection Nasal Exam: Normal inspection Mouth exam: Other (no teeth; poorly fitted dentures) Throat exam: Normal inspection - Neck Neck exam: Normal inspection, Full ROM. negative: Tenderness - Respiratory Respiratory exam: Normal lung sounds bilaterally. negative: Respiratory distress - Cardiovascular Cardiovascular Exam: Regular rate, Normal rhythm Peripheral Pulses: 2+: Radial (R), Radial (L) - GI/Abdominal GI/Abdominal exam: Soft. negative: Distended, Guarding, Rebound, Rigid, Tenderness - Rectal Rectal exam: Deferred - exam: Deferred - Extremities Extremities exam: Normal inspection, Full ROM, Normal capillary refill, Other ( Well healed right hip surgery site). negative: Tenderness - Back Back exam: Reports: Normal inspection, Full ROM. Denies: CVA tenderness (R), CVA tenderness (L), Muscle spasm, Rash noted, Tenderness - Neurological Neurological exam: Alert, Normal gait, Oriented X3, Reflexes normal - Psychiatric Psychiatric exam: Normal affect, Normal mood - Skin Skin exam: Dry, Intact, Normal color, Warm Results - Labs Result Diagrams: 07/22/17 06:13 07/22/17 06:13 Labs Last 24 Hours: Laboratory Results - last 24 hr 07/22/17 07/22/17 06:13 06:13 WBC 3.8 L RBC 3.39 L Hgb 10.9 L Hct 34.2 L MCV 100.9 H MCH 32.1 MCHC 31.9 L RDW 17.9 H Plt Count 64 L MPV 8.9 Gran % 68.8 Lymphocytes % 19.7 Monocytes % 9.6 H Eosinophils % 1.6 Basophils % 0.3 Sodium 140 Potassium 3.5 Chloride 99 Carbon Dioxide 29.0 Anion Gap 12.0 BUN 13 Creatinine 0.7 Estimated GFR > 60 Random Glucose 159 H Calcium 8.4 L Total Bilirubin 1.40 H AST 33 ALT 14 Alkaline Phosphatase 97 Total Protein 5.6 L Albumin 3.3 L Globulin 2.3 Albumin/Globulin Ratio 1.4 VTE H&P Assessment - Risk for VTE Risk for VTE: Yes Risk Level: High Risk Assessment Date: 07/21/17 Risk Assessment Time: 10:00 VTE Orders Placed or Will Be Placed: No VTE Reason for No Prophylaxis: Contraindicated (high bleed risk ) Plan - Inpatient Certification Inpatient Certification: Admit to inpatient care: Based on my medical assessment, after consideration of patient's risk factors (age, co-morbidities and patient presenting symptoms and acuity), I expect that this patient will remain in the hospital greater than or equal to two midnights and that the services needed warrant inpatient care because: Patient Risk Factors: [age, alcohol withdrawal, malnutrition] Estimated length of stay: [48-72H] The patient may reasonably be expected to be discharged or transferred to a hospital within 96 hours after admission to [facility]. Services needed: [IV fluids, social work consult, dietary, pt/ot] Post hospital care (if known): [[facility] vs home health] I certify that my determination is in accordance with my understanding of Medicare requirements for reasonable and necessary inpatient services. 07/22/17 09:25 - Detailed Diagnosis and Plan (1) Alcohol intoxication Current Visit: Yes Status: Acute Qualifiers: Complication of substance-induced condition: uncomplicated Qualified Code(s ): F10.920 - Alcohol use, unspecified with intoxication, uncomplicated Base Code: F10.929 - ALCOHOL USE, UNSPECIFIED WITH INTOXICATION, UNSPECIFIED Comment: 07/21/17. etoh level of 0.32 while in ED. patient states he had been sober for 300 days but then his dog passed so he started drinking again. drinking a pint of vodka daily. last drink 07/20 -continue IVF with NS at 100cc/hr -thiamine given in ED, on folic acid, b12 -CIWA scale q4H with ativan ordered for >8. no h/o seizure . -continue vitals q8H -repeat labs qam (2) Generalized muscle weakness Current Visit: Yes Status: Acute Base Code: M62.81 - MUSCLE WEAKNESS ( GENERALIZED) Comment: 07/21/17: secondary to malnutrition, alcohol abuse. -PT/OT eval ordered. Do not feel he needs [facility]. Zeinab declined patient. -SW consulted and has set up home health to continue therapy. she has also set up a home care working to come out once a week along with community health worker and social security specialist -APS case was opened in 2016. He is not interested in any inpatient rehab facillity or other resources for substance abuse at this time. (3) Malnutrition Current Visit: Yes Status: Chronic Qualifiers: Malnutrition type: protein-calorie malnutrition Base Code: E46 - UNSPECIFIED PROTEIN-CALORIE MALNUTRITION Comment: 06/20/17- secondary to alcohol abuse. Patient wears poorly fitted dentures. Will continue mechanical soft diet high in protein and calories. -Nutrition consult (4) Alcoholic liver disease Current Visit: Yes Status: Acute Base Code: K70.9 - ALCOHOLIC LIVER DISEASE , UNSPECIFIED Comment: 07/21/17- unchanged from previous. PT/INR wnl. plt count of 84. Tbili elevated this morning to 1.1. on previous abdominal u/s found to have biliary sludge. he denies any RUQ pain and no ttp on exam. -continue to monitor -repeat labs qam (5) Pancytopenia Current Visit: No Status: Chronic Base Code: D61.818 - OTHER PANCYTOPENIA Comment: 07/21/17- stable. Currently at his baseline compared to previous labs. etiology unclear but suspect due to chronic malnutrition (6) Full code status Current Visit: No Status: Acute Base Code: Z78.9 - OTHER SPECIFIED HEALTH STATUS Comment: 07/21/17: patient remained full code (7) DVT prophylaxis Current Visit: Yes Status: Acute Base Code: [id number] - Comment: 07/21/17- plt count <100,000. -will encourage ambulation with pt/ot and avoid anticoagulation with higher bleed risk
[2017-07-22] MEDS: CYANOCOBALAMIN 1000 MCG/ML VIAL SC SCH (09:54)
[2017-07-22] MEDS ORDERED: PNEUM 13-VAL/PF 0.5 ML IM ONE (09:54)
[2017-07-22] MEDS: GABAPENTIN 300 MG CAPSULE PO SCH (09:55)
[2017-07-22] MEDS: FOLIC ACID 1 MG TABLET PO SCH (09:55)
[2017-07-22] MEDS: SOTALOL HCL 80 MG TABLET PO SCH (09:55)
--- NOTE | 2017-07-22 10:33 | Discharge Summary ---
Providers Discharge Summary Date: 07/22/17 Date of admission: 07/20/17 19:45 Attending physician: Popeye Álvarez Physical Exam - Vital Signs Vital Signs: Vital Signs - Last 24 Hrs Temp Pulse Resp BP BP Pulse Ox 07/22/17 10:00 98.4 F 87 18 146/78 96 07/22/17 08:56 20 07/22/17 05:59 97.7 F 69 20 176/84 96 07/21/17 20:00 99.0 F 82 18 155/75 98 07/21/17 18:00 99.5 F 86 18 153/78 94 L 07/21/17 14:00 99.5 F 86 18 153/78 94 L - General General Appearance: Alert, Oriented x3, Cooperative, No acute distress, Other ( pallor, malnourished) Limitations: No limitations - Head Head exam: Atraumatic, Normocephalic, Normal inspection - Eye Eye exam: Normal appearance, EOMI (chronic disconjugate gaze; right eye). negative: Conjunctival injection, Periorbital swelling - ENT ENT exam: Normal exam, Mucous membranes moist Ear exam: Normal external inspection Nasal Exam: Normal inspection Mouth exam: Other (no teeth; poorly fitted dentures) Throat exam: Normal inspection - Neck Neck exam: Normal inspection, Full ROM. negative: Tenderness - Respiratory Respiratory exam: Normal lung sounds bilaterally. negative: Respiratory distress - Cardiovascular Cardiovascular Exam: Regular rate, Normal rhythm Peripheral Pulses: 2+: Radial (R), Radial (L) - GI/Abdominal GI/Abdominal exam: Soft. negative: Distended, Guarding, Rebound, Rigid, Tenderness - Rectal Rectal exam: Deferred - exam: Deferred - Extremities Extremities exam: Normal inspection, Full ROM, Normal capillary refill, Other ( Well healed right hip surgery site). negative: Tenderness - Back Back exam: Reports: Normal inspection, Full ROM. Denies: CVA tenderness (R), CVA tenderness (L), Muscle spasm, Rash noted, Tenderness - Neurological Neurological exam: Alert, Normal gait, Oriented X3, Reflexes normal - Psychiatric Psychiatric exam: Normal affect, Normal mood - Skin Skin exam: Dry, Intact, Normal color, Warm Hospitalization - Hospitalization Admission Diagnosis: dehdyration, weakness, alcohol abuse, intractable vomiting , deconditioning - Hospitalization Course Disposition: Home Health Service Abnormal Labs: Abnormal Lab Results 07/21/17 07/22/17 07/22/17 Range/Units 06:15 06:13 06:13 WBC 3.8 L (4.2-12.2) K/uL RBC 3.39 L (4.40-5.70) M/uL Hgb 10.9 L (14.0-18.0) gm/dl Hct 34.2 L (42.0-52.0) % MCV 100.9 H (81-97) fl MCHC 31.9 L (32-36) g/dl RDW 17.9 H (11.5-14.5) % Plt Count 64 L (130-400) K/uL Monocytes % 9.6 H (0-9) % Carbon Dioxide 21.0 L (22-29) mmol/L Anion Gap 21.0 H (7-16) Random Glucose 159 H (74-109) mg/dL Calcium 8.0 L 8.4 L (8.8-10.2) mg/dL Total Bilirubin 1.10 H 1.40 H (0.2-1.0) mg/dL AST 61 H (10.0-50.0) U/L Total Protein 5.6 L 5.6 L (6.6-8.7) g/dL Albumin 3.2 L 3.3 L (4.0-5.0) g/dL Condition at Discharge: (2) Stable Discharge Medications - Discharge Medications Home Medications: Ambulatory Orders Cyanocobalamin (Vitamin B-12) [Vitamin B-12] 1,000 mcg SC DAILY vial 10/22/15 [ Last Taken Unknown] Folic Acid 1 mg PO DAILY tablet 10/22/15 [Last Taken Unknown] Gabapentin 300 mg PO TID 10/23/16 [Last Taken Unknown] Omeprazole [Prilosec] 20 mg PO DAILY 10/23/16 [Last Taken Unknown] Sotalol HCl [Betapace] 80 mg PO BID 10/23/16 [Last Taken Unknown] Discharge Plan - Discharge Instructions Instructions: Alcohol Intoxication (DC), Abuse of Alcohol (DC), Alcohol Withdrawal (DC) Additional Instructions: 2 Activity: Up as tolerated 2 Diet: As tolerated Please try to stop drinking alcohol 2 Consults: [] 2 Follow Up: [With primary care in 7-10 days] 2 Dressing/Wound Care: (Type) (Change) 2 Additional: [Continue home medications] Quality Measures - Quality Measures Quality Measures: Advance Directives, Documentation of Current Medications in Medical Record, Elder Maltreatment Screen and Follow-Up Plan, Heart Failure, Screening for High Blood Pressure and F/U Documented - Current Medications Quality Measure: Measure #130: Documentation of Current Medications - Blood Pressure Screening Quality Measure: Screening for High Blood Pressure and Follow-Up Documented Blood Pressure Classification: Hypertensive Reading Systolic Measurement: 152 Diastolic Measurement: 72 - Heart Failure (CRISTOBAL/ARB Therapy) Quality Measure: Heart Failure - Heart Failure (Beta-wellington Therapy) Quality Measure: Heart Failure - Advance Directives Quality Measure: Measure #47: Care Plan Advance Directives Established: No Advance Directives Information Provided To Patient: Already Provided Advance Directives on File: No Living Will: No Power of Wet Trimmer: Yes Power of Wet Trimmer Name: David Bates - Elder Abuse Suspicion Index Screening: Elder Abuse Suspicion Index Screening Rely on people for bathing, dressing, shopping, banking, etc: Yes Prevented from getting food, clothes, medication, etc: No Made to feel shamed or threatened by someone: No Forced to sign papers or use money against will: No Feel afraid, touched in ways not wanted or hurt physically: No Poor eye contact, withdrawn, malnourished, cuts or bruises: Yes Screening Result: Positive result, One YES response in questions 2-6. EASI Reference Information: Trever STEVE, Don C, Hilda D, William Staton.Development and validation of a tool to assist physicians identification of elder abuse: The Elder Abuse Suspicion Index (EASI ). Journal of Elder Abuse and Neglect, 2008; 20 (3): 276-300. - Elder Maltreatment Screen Quality Measures: Elder Maltreatment Screen and Follow-Up Plan
== END 2017-07-22 15:30 | disposition home health service (06) | DRG 897 ==
LOC: ER 17:28 → MEDSURG 19:45
PROVIDERS: ADMIT Internal Medicine; ATTEND Internal Medicine
DX: F10.920 Alcohol use, unspecified with intoxication, uncomplicated (principal); F10.129 Alcohol abuse with intoxication, unspecified; E46 Unspecified protein-calorie malnutrition; D61.818 Other pancytopenia; M62.81 Muscle weakness (generalized); K70.9 Alcoholic liver disease, unspecified; I50.9 Heart failure, unspecified; I10 Essential (primary) hypertension
CPT/HCPCS: 93041; 99285 ×2; 96365; 96366; 96375; 82550; 83735; 85025; 85730; 85610; 80053; 93005; 93010; G0480; J2060; 80320; 81003; 90670; 94760; 97165; 99223; J1650; J3411; J7030